=== PATIENT | male | born 1950 | race Caucasian/White ===

== ENCOUNTER 2019-08-12 05:05 | Day surgery (SDC) | payer MEDICARE, MEDICAID ==
[2019-08-10 10:00] LABS: BASOPHILS # (AUTO) 0.1 X10'3 (0-0.2); BASOPHILS % (AUTO) 0.9 % (0-1); EOSINOPHILS # (AUTO) 0.5 X10'3 (0-0.9); HEMATOCRIT 42.9 % (42.0-52.0); HEMOGLOBIN 14.7 g/dl (14.0-17.9); LYMPHOCYTES # (AUTO) 3.2 X10'3 (1.1-4.8); LYMPHOCYTES % (AUTO) 35.8 % (21-51); MEAN CORPUSCULAR HEMOGLOBIN 31.5 PG (27.0-31.0); MEAN CORPUSCULAR HGB CONC 34.3 g/dL (33.0-36.5); MEAN CORPUSCULAR VOLUME 91.7 FL (78-98); MEAN PLATELET VOLUME 8.2 FL (7.4-10.4); MONOCYTES # (AUTO) 0.8 X10'3 (0-0.9); MONOCYTES % (AUTO) 8.7 % (2-12); NEUTROPHILS # (AUTO) 4.3 X10'3 (1.8-7.7); NEUTROPHILS % (AUTO) 48.6 % (42-75); PLATELET COUNT 289 X10'3 (140-440); RED BLOOD COUNT 4.67 X10'6 (4.70-6.10); RED CELL DISTRIBUTION WIDTH 13.9 % (11.5-14.5); WHITE BLOOD COUNT 8.9 X10'3 (4.5-11.0)
[2019-08-10 10:06] LABS: ALBUMIN 3.6 G/DL (3.4-5.0); ANION GAP 8 (8-16); BLOOD UREA NITROGEN 11 MG/DL (7-18); BUN/CREATININE RATIO 10.9 (5.4-32.0); CALCIUM 8.8 MG/DL (8.5-10.1); CHLORIDE 100 MMOL/L (99-107); CREATININE 1.01 MG/DL (0.60-1.10); GLUCOSE 102 MG/DL (70-104); POTASSIUM 4.7 MMOL/L (3.5-5.1); SODIUM 132 MMOL/L (135-145); eGFR 74 ML/MIN
[2019-08-10 11:24] LABS: PARTIAL THROMBOPLASTIN TIME 27 SECONDS (22-32)
[~2019-08-12] VITALS: Ht 172.7 cm; Wt 88.8 kg
[2019-08-12] VITALS (9 sets, daily range): BP systolic 117–136; BP diastolic 64–87
[~2019-08-12 05:05] MED LIST: ASPI-1264 PO; ATOR20TA66 PO; CLOP75TA35 PO; LISI-600 PO; LOP25T PO; TRAM50TA2 PO
[2019-08-12] MEDS ORDERED: diphenhydrAMINE 25mg capsule PO PRN (05:35)
[2019-08-12] MEDS ORDERED: LORazepam 0.5 MG tablet PO PRN (05:35)
[2019-08-12] MEDS ORDERED: normal saline 1,000 ML IV SCH (05:35)
[2019-08-12] MEDS ORDERED: midazolam 2 mg/2 ml injection ONE ×2 (06:01→06:51)
[2019-08-12] MEDS ORDERED: fentaNYL/PF 50MCG/1 ML 2ML syringe ONE (06:01)
[2019-08-12] MEDS ORDERED: iohexol 350MG/ML 100ml bottle IV ONE ×2 (06:02→06:50)
[2019-08-12] MEDS ORDERED: LIDOcaine 1% (10mg/ml)w/preservative injection 20ml MDV ONE (06:02)
[2019-08-12] MEDS ORDERED: LOSA100T57 PO (06:33)
[2019-08-12] MEDS ORDERED: METO50TA17 PO (06:33)
[2019-08-12] MEDS ORDERED: AMLO10TA PO (06:33)
[2019-08-12] MEDS ORDERED: IBUP-1984 PO (06:33)
[2019-08-12] MEDS ORDERED: ASPI-1265 PO (06:33)
[2019-08-12] MEDS ORDERED: ATOR20TA66 PO (06:33)
[2019-08-12] MEDS ORDERED: heparin 1,000unit/ml 10ml vial 10 ML ONE (06:50)
[2019-08-12] MEDS ORDERED: clopidogrel 300mg tablet ONE (07:07)
[2019-08-12] MEDS ORDERED: ondansetron/PF 4mg/2ml inj IV PRN (07:45)
[2019-08-12] MEDS ORDERED: proCHLORperazine 10 MG/2 ml inj IV PRN (07:45)
[2019-08-12] MEDS ORDERED: HYDROcodone/acetaminophen 10/325mg tab PO PRN (07:45)
[2019-08-12] MEDS ORDERED: OXAZEpam 15mg capsule PO PRN (07:45)
[2019-08-12] MEDS ORDERED: HYDROcodone/acetaminophen 5mg/325mg tablet PO PRN (07:45)
[2019-08-12] MEDS ORDERED: acetaminophen 325mg tablet PO PRN (07:45)
[2019-08-13] MEDS ORDERED: clopidogrel 75mg tablet PO SCH (08:00)
== END 2019-08-12 10:50 | disposition home or self-care (01) ==
LOC: SSTAY O 05:05
PROVIDERS: ATTEND Internal Medicine Interventional Cardiology
DX: I25.10 Atherosclerotic heart disease of native coronary artery without angina pectoris (principal); I25.2 Old myocardial infarction; I10 Essential (primary) hypertension; Z86.73 Personal history of transient ischemic attack (TIA), and cerebral infarction without residual deficits; Z88.5 Allergy status to narcotic agent; Z88.8 Allergy status to other drugs, medicaments and biological substances; Z79.899 Other long term (current) drug therapy; Z79.82 Long term (current) use of aspirin; Z87.891 Personal history of nicotine dependence; Z79.01 Long term (current) use of anticoagulants
CPT/HCPCS: 36415; 80048; 85025; 85610; 85730; 92920; 93459; 99152; 99153; C1725; C1769; C1874; J1644; J2001; J2250; J3010; J7030; Q0163; Q9967; A4620; A6258; C1760

== ENCOUNTER 2021-03-26 16:02 | Inpatient (IN) | payer MEDICARE, MEDICAID ==
[~2021-03-26] VITALS: Ht 172.7 cm; Wt 93.0 kg
[~2021-03-26 16:02] MED LIST changes: -ASPI-1264 PO; +ASPI-1265 PO; +CLOP75TA34 PO; -CLOP75TA35 PO; +ENOX40DI11 SQ; +HYDR-3965 PO; -LISI-600 PO; -LOP25T PO; +LOSA100T57 PO; +METO50TA16 PO
[2021-03-26] MEDS ORDERED: normal saline 1000ML IV soln IVB ONE ×2 (16:25→17:15)
[2021-03-26] MEDS ORDERED: proCHLORperazine 10 MG/2 ml inj IV ONE (16:25)
--- NOTE | 2021-03-26 16:31 | NUR ---
RELIEVING RN FOR BREAK, PT IS HAVING HICCUPS, DIFFICULTY GETTING EKG, LABS WERE DRAWN WITH IV START
--- NOTE | 2021-03-26 16:40 | NUR ---
PT IS RECEIVING 1ST LITER NS W/O
[2021-03-26 16:44] LABS: BASOPHILS # (AUTO) 0.1 X10'3 (0-0.2); BASOPHILS % (AUTO) 0.4 % (0-1); EOSINOPHILS # (AUTO) 0.1 X10'3 (0-0.9); EOSINOPHILS % (AUTO) 1.2 % (0-6); HEMATOCRIT 31.8 % (42.0-52.0); HEMOGLOBIN 11.3 g/dl (14.0-17.9); LYMPHOCYTES # (AUTO) 1.2 X10'3 (1.1-4.8); MEAN CORPUSCULAR HEMOGLOBIN 30.4 PG (27.0-31.0); MEAN CORPUSCULAR HGB CONC 35.4 g/dL (33.0-36.5); MEAN PLATELET VOLUME 7.1 FL (7.4-10.4); MONOCYTES # (AUTO) 0.7 X10'3 (0-0.9); MONOCYTES % (AUTO) 6.3 % (2-12); NEUTROPHILS # (AUTO) 9.6 X10'3 (1.8-7.7); NEUTROPHILS % (AUTO) 82.1 % (42-75); PLATELET COUNT 597 X10'3 (140-440); RED CELL DISTRIBUTION WIDTH 13.2 % (11.5-14.5); WHITE BLOOD COUNT 11.8 X10'3 (4.5-11.0)
[2021-03-26 16:57] LABS: ALANINE AMINOTRANSFERASE 48 U/L (12-78); ALBUMIN 3.1 G/DL (3.4-5.0); ALBUMIN/GLOBULIN RATIO 0.8 (1.1-1.5); ALKALINE PHOSPHATASE 209 IU/L (46-116); ANION GAP 8 (8-16); ASPARTATE AMINO TRANSFERASE 34 U/L (10-37); BILIRUBIN,TOTAL 1.9 MG/DL (0.1-1.0); BLOOD UREA NITROGEN 8 MG/DL (7-18); BUN/CREATININE RATIO 12.9 (5.4-32.0); CALCIUM 8.5 MG/DL (8.5-10.1); CREATININE 0.62 MG/DL (0.60-1.10); ETHANOL < 0.010 GM/DL (0.0-0.010); GLUCOSE 114 MG/DL (70-104); LIPASE 133 U/L (73-393); TOTAL CARBON DIOXIDE 25.3 MMOL/L (24-32); TOTAL PROTEIN 7.2 G/DL (6.4-8.2); TROPONIN I < 0.04 NG/ML (0.0-0.05); eGFR > 90 ML/MIN
[2021-03-26 17:01] LABS: POTASSIUM 2.7 MMOL/L (3.5-5.1); SODIUM 103 MMOL/L (135-145)
[2021-03-26 17:02] LABS: CHLORIDE 70 MMOL/L (99-107)
[2021-03-26] MEDS ORDERED: morphine 4 MG/ML inj SYRINge IV PRN (17:15)
[2021-03-26] MEDS ORDERED: potassium Cl 10 mEq/100mL bag IV ONE (17:15)
[2021-03-26] MEDS ORDERED: ondansetron/PF 4mg/2ml inj IV ONE (17:15)
[2021-03-26 17:51] LABS: ANION GAP 11 (8-16); CHLORIDE 69 MMOL/L (99-107); MAGNESIUM 1.7 MG/DL (1.5-2.4); TOTAL CARBON DIOXIDE 24.9 MMOL/L (24-32)
[2021-03-26 17:54] LABS: SODIUM 105 MMOL/L (135-145)
[2021-03-26 17:55] LABS: POTASSIUM 2.8 MMOL/L (3.5-5.1)
[2021-03-26 18:00] VITALS: BP 139/75
[2021-03-26] MEDS ORDERED: sodium chloride 3% IV.soln 100 ML IV ONE (18:20)
[2021-03-26] MEDS ORDERED: magnesium 2GM in 50ml NS 50 ML IV ONE (18:20)
[2021-03-26] MEDS ORDERED: sodium chloride 3% IV.soln 500 ML IV SCH (18:20)
[2021-03-26 18:56] LABS: PARTIAL THROMBOPLASTIN TIME 35 SECONDS (22-32)
[2021-03-26] MEDS: potassium Cl 10 mEq/100mL bag IV SCH ×5 (19:20→22:58)
[2021-03-26 20:00] VITALS: BP 123/73
[2021-03-26] MEDS ORDERED: magnesium Cl slow-release 64mg tablet PO PRN (20:25)
[2021-03-26] MEDS ORDERED: Neutra Phos packet PO PRN (20:25)
[2021-03-26] MEDS ORDERED: magnesium 2GM in 50ml NS 50 ML IV PRN (20:25)
[2021-03-26] MEDS ORDERED: magnesium 4gm in 100ml NS 100 ML IV PRN (20:25)
[2021-03-26] MEDS ORDERED: potassium Cl 20 mEq SR tablet PO PRN (20:25)
[2021-03-26] MEDS ORDERED: sodium phosphate inj. 30 MMOL in dextrose 5%-water 250 ML IV PRN (20:25)
[2021-03-26 21:00] VITALS: BP 128/79
--- NOTE | 2021-03-26 21:37 | NUR ---
Patient in room ED 16. I have received report from STEPHEN George and had the opportunity to ask questions. Patient to be brought up to the unit shortly.
--- NOTE | 2021-03-26 21:45 | NUR ---
Patient in room 2011 B, in no apparent distress. MRSA swab obtained, darted, fluids running per md order, patient A/O but sleepy.
[2021-03-26 22:00] VITALS: BP 120/72
[2021-03-26 22:39] LABS: ANION GAP 10 (8-16); BLOOD UREA NITROGEN 7 MG/DL (7-18); BUN/CREATININE RATIO 10.8 (5.4-32.0); CALCIUM 8.1 MG/DL (8.5-10.1); CHLORIDE 75 MMOL/L (99-107); CREATININE 0.65 MG/DL (0.60-1.10); GLUCOSE 112 MG/DL (70-104); TOTAL CARBON DIOXIDE 24.4 MMOL/L (24-32); eGFR > 90 ML/MIN
[2021-03-26 22:41] LABS: SODIUM 109 MMOL/L (135-145)
[2021-03-26 22:42] LABS: POTASSIUM 2.9 MMOL/L (3.5-5.1)
[2021-03-26 23:00] VITALS: BP 114/56
[2021-03-27] VITALS (23 sets, daily range): BP systolic 107–159; BP diastolic 47–87
[2021-03-27] MEDS ORDERED: magnesium 2GM in 50ml NS 50 ML IV ONE (01:10)
[2021-03-27] MEDS: normal saline 1000ml 1,000 ML IV SCH ×2 (01:29→18:53)
[2021-03-27] MEDS: ketorolac trometh. 30mg/ml inj. IV SCH ×4 (01:31→19:26)
[2021-03-27] MEDS ORDERED: HYDR-3964 PO (01:57)
[2021-03-27 02:59] LABS: BASOPHILS # (AUTO) 0.1 X10'3 (0-0.2); BASOPHILS % (AUTO) 0.5 % (0-1); EOSINOPHILS # (AUTO) 0.3 X10'3 (0-0.9); EOSINOPHILS % (AUTO) 2.3 % (0-6); HEMATOCRIT 30.3 % (42.0-52.0); HEMOGLOBIN 10.8 g/dl (14.0-17.9); LYMPHOCYTES # (AUTO) 1.3 X10'3 (1.1-4.8); LYMPHOCYTES % (AUTO) 11.4 % (21-51); MEAN CORPUSCULAR HEMOGLOBIN 30.5 PG (27.0-31.0); MEAN CORPUSCULAR HGB CONC 35.6 g/dL (33.0-36.5); MEAN CORPUSCULAR VOLUME 85.8 FL (78-98); MEAN PLATELET VOLUME 7.3 FL (7.4-10.4); MONOCYTES # (AUTO) 0.9 X10'3 (0-0.9); MONOCYTES % (AUTO) 7.7 % (2-12); NEUTROPHILS # (AUTO) 8.7 X10'3 (1.8-7.7); NEUTROPHILS % (AUTO) 78.1 % (42-75); PLATELET COUNT 545 X10'3 (140-440); RED BLOOD COUNT 3.53 X10'6 (4.70-6.10); RED CELL DISTRIBUTION WIDTH 13.3 % (11.5-14.5); WHITE BLOOD COUNT 11.2 X10'3 (4.5-11.0)
--- NOTE | 2021-03-27 03:00 | NUR ---
Currently replacing electrolytes per protocol.
[2021-03-27 03:08] LABS: ALANINE AMINOTRANSFERASE 42 U/L (12-78); ALBUMIN 2.9 G/DL (3.4-5.0); ALBUMIN/GLOBULIN RATIO 0.8 (1.1-1.5); ALKALINE PHOSPHATASE 198 IU/L (46-116); ANION GAP 9 (8-16); ASPARTATE AMINO TRANSFERASE 32 U/L (10-37); BILIRUBIN,TOTAL 1.6 MG/DL (0.1-1.0); BLOOD UREA NITROGEN 6 MG/DL (7-18); BUN/CREATININE RATIO 9.4 (5.4-32.0); CALCIUM 8.1 MG/DL (8.5-10.1); CHLORIDE 79 MMOL/L (99-107); CREATININE 0.64 MG/DL (0.60-1.10); GLUCOSE 111 MG/DL (70-104); MAGNESIUM 2.2 MG/DL (1.5-2.4); PHOSPHORUS 2.2 MG/DL (2.3-4.5); TOTAL CARBON DIOXIDE 24.5 MMOL/L (24-32); TOTAL PROTEIN 6.7 G/DL (6.4-8.2); eGFR > 90 ML/MIN
[2021-03-27 03:14] LABS: SODIUM 112 MMOL/L (135-145)
[2021-03-27 03:15] LABS: POTASSIUM 2.7 MMOL/L (3.5-5.1)
[2021-03-27] MEDS: potassium Cl 40MEQ/250ML bag 270 ML IV PRN ×3 (03:18→12:48)
[2021-03-27] MEDS: sodium phosphate inj. 15 MMOL in dextrose 5%-water 250 ML IV PRN ×2 (03:48→23:43)
--- NOTE | 2021-03-27 06:18 | NUR ---
Problems reprioritized. Patient report given, questions answered & plan of care reviewed with Day shift RN.
[2021-03-27] MEDS: K and/or MAG REPLACEMENT MC SCH (08:00)
[2021-03-27 11:10] LABS: ANION GAP 9 (8-16); CHLORIDE 83 MMOL/L (99-107); MAGNESIUM 2.4 MG/DL (1.5-2.4); PHOSPHORUS 2.2 MG/DL (2.3-4.5); POTASSIUM 3.4 MMOL/L (3.5-5.1); TOTAL CARBON DIOXIDE 22.6 MMOL/L (24-32)
[2021-03-27 11:16] LABS: SODIUM 115 MMOL/L (135-145)
--- NOTE | 2021-03-27 14:56 | NUR ---
Malnutrition Consult: Pt admitted for N/V x2 days with low potassium and low sodium; pt was seen in the ER on 03/06 for N/V. Pt reports losing wt in the last 3 months without trying and having a decreased appetite for over 1 week, per Malnutrition Risk Screening for Nursing. Scaled wt hx shows 88 kg at previous visit 11/18 and current scaled wt is 93 kg. Dexter 16, with 2+ bilat ankle, 3+ left foot, 1+ right foot edema. Skin intact. Pt PO at first meal avg 50% at meals on a regular diet.Pt does not meet minimum 2 criteria at this time for malnutrition. Will continue to follow. Addendum: 03/27/21 at 1457 by Yajaira REYNA [employer] TALEO MANAGER RD Amended: Links added. Addendum: 03/27/21 at [address] GISSELL lucas w/ [employer] media planner note.
[2021-03-27] MEDS: ondansetron/PF 4mg/2ml inj IV PRN (15:07)
[2021-03-27 16:51] LABS: ALBUMIN 2.8 G/DL (3.4-5.0); ANION GAP 8 (8-16); BLOOD UREA NITROGEN 8 MG/DL (7-18); BUN/CREATININE RATIO 11.9 (5.4-32.0); CALCIUM 7.8 MG/DL (8.5-10.1); CHLORIDE 84 MMOL/L (99-107); CREATININE 0.67 MG/DL (0.60-1.10); GLUCOSE 110 MG/DL (70-104); TOTAL CARBON DIOXIDE 22.1 MMOL/L (24-32); eGFR > 90 ML/MIN
[2021-03-27 16:56] LABS: SODIUM 114 MMOL/L (135-145)
[2021-03-27 18:04] LABS: COLOR,URINE YELLOW (Yellow); GLUCOSE, URINE NEGATIVE (Neg); KETONES,URINE NEGATIVE (Neg); LEUKOCYTE ESTERASE ,URINE NEGATIVE (Neg); NITRITES, URINE NEGATIVE (Neg); OCCULT BLOOD,URINE NEGATIVE (Neg); PH,URINE 6.5 (4.8-8.0); PROTEIN,URINE NEGATIVE (Neg); UROBILINOGEN,URINE 0.2 E.U/dL (0.2-1.0)
[2021-03-27 18:22] LABS: UA COLLECTION TYPE CLN CATCH MIDSTREAM
[2021-03-27 18:23] LABS: CLARITY,URINE CLEAR (Clear)
--- NOTE | 2021-03-27 18:30 | NUR ---
Patient in room CICU 2010. I have received report from Laila MITCHELL and had the opportunity to ask questions and assume patient care.
[2021-03-27] MEDS: metoprolol tartrate 25mg tablet PO SCH (19:26)
[2021-03-27] MEDS: enoxaparin 40mg/0.4ml syringe SQ SCH (19:26)
[2021-03-27 22:39] LABS: ALBUMIN 2.7 G/DL (3.4-5.0); ANION GAP 7 (8-16); BLOOD UREA NITROGEN 7 MG/DL (7-18); BUN/CREATININE RATIO 10.6 (5.4-32.0); CALCIUM 8.1 MG/DL (8.5-10.1); CHLORIDE 84 MMOL/L (99-107); CREATININE 0.66 MG/DL (0.60-1.10); GLUCOSE 106 MG/DL (70-104); MAGNESIUM 2.1 MG/DL (1.5-2.4); PHOSPHORUS 1.7 MG/DL (2.3-4.5); POTASSIUM 3.9 MMOL/L (3.5-5.1); TOTAL CARBON DIOXIDE 22.8 MMOL/L (24-32); eGFR > 90 ML/MIN
[2021-03-27 22:41] LABS: SODIUM 114 MMOL/L (135-145)
[2021-03-27 22:59] LABS: OSMOLALITY 241 MOSM/K (280-300)
[2021-03-28] VITALS (20 sets, daily range): BP systolic 108–158; BP diastolic 46–86
[2021-03-28] MEDS: ketorolac trometh. 30mg/ml inj. IV SCH (02:04)
[2021-03-28 03:22] LABS: BASOPHILS # (AUTO) 0.1 X10'3 (0-0.2); EOSINOPHILS # (AUTO) 0.2 X10'3 (0-0.9); HEMOGLOBIN 10.4 g/dl (14.0-17.9); RED CELL DISTRIBUTION WIDTH 13.8 % (11.5-14.5); WHITE BLOOD COUNT 15.6 X10'3 (4.5-11.0)
[2021-03-28 03:24] LABS: BASOPHILS % (AUTO) 0.4 % (0-1); EOSINOPHILS % (AUTO) 1.1 % (0-6); HEMATOCRIT 29.5 % (42.0-52.0); LYMPHOCYTES # (AUTO) 0.7 X10'3 (1.1-4.8); LYMPHOCYTES % (AUTO) 4.3 % (21-51); MEAN CORPUSCULAR HGB CONC 35.3 g/dL (33.0-36.5); MEAN CORPUSCULAR VOLUME 87.9 FL (78-98); MEAN PLATELET VOLUME 7.3 FL (7.4-10.4); MONOCYTES # (AUTO) 0.4 X10'3 (0-0.9); MONOCYTES % (AUTO) 2.6 % (2-12); NEUTROPHILS # (AUTO) 14.3 X10'3 (1.8-7.7); NEUTROPHILS % (AUTO) 91.6 % (42-75); PLATELET COUNT 519 X10'3 (140-440); RED BLOOD COUNT 3.35 X10'6 (4.70-6.10)
[2021-03-28 03:36] LABS: ALANINE AMINOTRANSFERASE 37 U/L (12-78); ALBUMIN 2.5 G/DL (3.4-5.0); ALBUMIN/GLOBULIN RATIO 0.7 (1.1-1.5); ALKALINE PHOSPHATASE 179 IU/L (46-116); ANION GAP 9 (8-16); ASPARTATE AMINO TRANSFERASE 30 U/L (10-37); BILIRUBIN,TOTAL 1.3 MG/DL (0.1-1.0); BLOOD UREA NITROGEN 7 MG/DL (7-18); BUN/CREATININE RATIO 10.1 (5.4-32.0); CALCIUM 7.5 MG/DL (8.5-10.1); CHLORIDE 85 MMOL/L (99-107); CREATININE 0.69 MG/DL (0.60-1.10); GLUCOSE 106 MG/DL (70-104); MAGNESIUM 1.8 MG/DL (1.5-2.4); PHOSPHORUS 2.3 MG/DL (2.3-4.5); POTASSIUM 3.7 MMOL/L (3.5-5.1); TOTAL CARBON DIOXIDE 20.9 MMOL/L (24-32); TOTAL PROTEIN 6.1 G/DL (6.4-8.2); eGFR > 90 ML/MIN
[2021-03-28 03:39] LABS: SODIUM 115 MMOL/L (135-145)
--- NOTE | 2021-03-28 06:13 | NUR ---
Problems reprioritized. Patient report given, questions answered & plan of care reviewed with Sunny MITCHELL.
--- NOTE | 2021-03-28 06:30 | NUR ---
Patient in room CICU 2010. I have received report from Karyna MITCHELL and had the opportunity to ask questions and assume patient care.
[2021-03-28] MEDS: atorvastatin 20mg tablet PO SCH (07:35)
[2021-03-28] MEDS: aspirin 81mg tab.chew PO SCH (07:35)
[2021-03-28] MEDS: clopidogrel 75mg tablet PO SCH (07:35)
[2021-03-28] MEDS: metoprolol tartrate 25mg tablet PO SCH ×2 (07:35→20:04)
[2021-03-28] MEDS: K and/or MAG REPLACEMENT MC SCH (08:00)
[2021-03-28] MEDS ORDERED: losartan 50mg tablet PO SCH (08:00)
[2021-03-28] MEDS ORDERED: furosemide 40mg/4ml inj IV ONE (08:20)
[2021-03-28] MEDS: normal saline 1000ml 1,000 ML IV SCH ×3 (08:39→21:35)
[2021-03-28 08:55] LABS: ALBUMIN 2.7 G/DL (3.4-5.0); ANION GAP 8 (8-16); BLOOD UREA NITROGEN 6 MG/DL (7-18); BUN/CREATININE RATIO 8.5 (5.4-32.0); CALCIUM 7.8 MG/DL (8.5-10.1); CHLORIDE 86 MMOL/L (99-107); CREATININE 0.71 MG/DL (0.60-1.10); GLUCOSE 99 MG/DL (70-104); POTASSIUM 3.6 MMOL/L (3.5-5.1); TOTAL CARBON DIOXIDE 22.9 MMOL/L (24-32); eGFR > 90 ML/MIN
[2021-03-28 08:56] LABS: SODIUM 117 MMOL/L (135-145)
[2021-03-28 09:39] LABS: MAGNESIUM 1.8 MG/DL (1.5-2.4); PHOSPHORUS 2.3 MG/DL (2.3-4.5)
--- NOTE | 2021-03-28 10:19 | NUR ---
updated on all abnormal lab values and new issues. New orders received.
[2021-03-28] MEDS: pantoprazole 40 MG vial IV SCH (11:02)
[2021-03-28 11:35] LABS: CLARITY,URINE CLEAR (Clear); COLOR,URINE YELLOW (Yellow); GLUCOSE, URINE NEGATIVE (Neg); KETONES,URINE NEGATIVE (Neg); LEUKOCYTE ESTERASE ,URINE NEGATIVE (Neg); NITRITES, URINE NEGATIVE (Neg); OCCULT BLOOD,URINE NEGATIVE (Neg); PROTEIN,URINE NEGATIVE (Neg)
[2021-03-28 11:38] LABS: UA COLLECTION TYPE NON-SPECIFIED
[2021-03-28] MEDS ORDERED: dextrose ORAL solution 15 GM/59 ML bottle PO PRN ×2 (13:45)
[2021-03-28] MEDS ORDERED: dextrose 50%-water 50ml dispensing syringe IV PRN ×2 (13:45)
--- NOTE | 2021-03-28 13:55 | NUR ---
MD aware patient's Blood Glucose was 62, orders received for D50. 1/2 an amp given BG rechecked 162.
[2021-03-28 14:42] LABS: ALBUMIN 2.5 G/DL (3.4-5.0); ANION GAP 7 (8-16); BLOOD UREA NITROGEN 7 MG/DL (7-18); CALCIUM 7.7 MG/DL (8.5-10.1); CHLORIDE 85 MMOL/L (99-107); CREATININE 0.78 MG/DL (0.60-1.10); GLUCOSE 114 MG/DL (70-104); POTASSIUM 3.6 MMOL/L (3.5-5.1); TOTAL CARBON DIOXIDE 24.4 MMOL/L (24-32); eGFR > 90 ML/MIN
[2021-03-28 14:44] LABS: SODIUM 116 MMOL/L (135-145)
[2021-03-28] MEDS: ketorolac trometh. 30mg/ml inj. IV PRN ×2 (15:08→21:34)
[2021-03-28 15:19] LABS: MAGNESIUM 1.8 MG/DL (1.5-2.4); PHOSPHORUS 2.2 MG/DL (2.3-4.5)
--- NOTE | 2021-03-28 15:36 | NUR ---
Worked with patient and PT aide at bedside for exercises appropriate for s/p left sanchez arthroplasty. Will encourage patient to perform exercises every hour while awake.
--- NOTE | 2021-03-28 15:42 | NUR ---
patient report called to Halle MITCHELL. All questions answered.
--- NOTE | 2021-03-28 15:47 | NUR ---
Patient in room CICU 2010. I have received report from STEPHEN Cornell. Awaiting patient arrival from CICU to assume care.
[2021-03-28] MEDS: sodium phosphate inj. 15 MMOL in dextrose 5%-water 250 ML IV PRN (16:10)
--- NOTE | 2021-03-28 16:51 | NUR ---
Report called to receiving nurse. Transferred via bed with all belongings: shirt, sweats, cell phone and glasses. Special Issues communicated to receiving nurse.
--- NOTE | 2021-03-28 17:02 | NUR ---
Patient received from CICU. Settled into new bed, hip precautions maintained. Will monitor per protocol.
[2021-03-28 17:12] LABS: TOTAL VOLUME 24HRS,URINE 1775 ML
[2021-03-28] MEDS ORDERED: TOLVAPTAN 30 MG TABLET PO ONE (17:20)
--- NOTE | 2021-03-28 17:50 | NUR ---
Right groin central line DC'd with cath tip intact. pressure held for 5 minutes then pressure dressing applied.
--- NOTE | 2021-03-28 18:10 | NUR ---
Problems reprioritized. Patient report given, questions answered & plan of care reviewed with Rito MITCHELL.
--- NOTE | 2021-03-28 18:30 | NUR ---
Problems reprioritized. Patient report given, questions answered & plan of care reviewed with STEPHEN Veras.
[2021-03-28] MEDS ORDERED: enoxaparin 40mg/0.4ml syringe SUBCUT SCH (20:00)
[2021-03-28] MEDS: enoxaparin 40mg/0.4ml syringe SQ SCH (20:04)
[2021-03-28] MEDS: acetaminophen 325mg tablet PO PRN (20:14)
[2021-03-28 20:46] LABS: ALBUMIN 2.4 G/DL (3.4-5.0); ANION GAP 9 (8-16); BLOOD UREA NITROGEN 7 MG/DL (7-18); BUN/CREATININE RATIO 8.4 (5.4-32.0); CALCIUM 7.9 MG/DL (8.5-10.1); CHLORIDE 84 MMOL/L (99-107); CREATININE 0.83 MG/DL (0.60-1.10); GLUCOSE 124 MG/DL (70-104); POTASSIUM 3.2 MMOL/L (3.5-5.1); TOTAL CARBON DIOXIDE 21.1 MMOL/L (24-32); eGFR > 90 ML/MIN
[2021-03-28 20:49] LABS: SODIUM 114 MMOL/L (135-145)
[2021-03-28 20:51] LABS: MAGNESIUM 1.7 MG/DL (1.5-2.4); PHOSPHORUS 2.4 MG/DL (2.3-4.5)
[2021-03-28] MEDS: ondansetron/PF 4mg/2ml inj IV PRN (21:34)
[2021-03-28 23:20] LABS: SODIUM,URINE RANDOM 76 MEQ/L
--- NOTE | 2021-03-28 23:58 | NUR ---
Student documentation: I have reviewed all interventions, assessments performed and documented by Tierney Roberts. Student Medication Administration: For this medication-pass time frame, all medication were reviewed, dispensed, administered and documented per hospital policy by Tierney Roberts.
[2021-03-29] VITALS (10 sets, daily range): BP systolic 116–145; BP diastolic 58–88
[2021-03-29 04:02] LABS: BASOPHILS # (AUTO) 0.1 X10'3 (0-0.2); BASOPHILS % (AUTO) 0.6 % (0-1); EOSINOPHILS # (AUTO) 0.4 X10'3 (0-0.9); EOSINOPHILS % (AUTO) 3.5 % (0-6); HEMATOCRIT 30.4 % (42.0-52.0); HEMOGLOBIN 10.7 g/dl (14.0-17.9); LYMPHOCYTES # (AUTO) 1.3 X10'3 (1.1-4.8); LYMPHOCYTES % (AUTO) 12.3 % (21-51); MEAN CORPUSCULAR HGB CONC 35.1 g/dL (33.0-36.5); MEAN CORPUSCULAR VOLUME 88.2 FL (78-98); MEAN PLATELET VOLUME 7.3 FL (7.4-10.4); MONOCYTES # (AUTO) 0.5 X10'3 (0-0.9); MONOCYTES % (AUTO) 4.9 % (2-12); NEUTROPHILS % (AUTO) 78.7 % (42-75); PLATELET COUNT 297 X10'3 (140-440); RED BLOOD COUNT 3.44 X10'6 (4.70-6.10); RED CELL DISTRIBUTION WIDTH 13.7 % (11.5-14.5); WHITE BLOOD COUNT 10.2 X10'3 (4.5-11.0)
--- NOTE | 2021-03-29 04:53 | NUR ---
MULTIPLE NURSES ATTEMPTED TO DRAW PT LABS, PT REQUESTED TO NOT BE STUCK ANYMORE WITH NEEDLE, PHLEBOTOMY CALLED AT THIS TIME TO COME DRAW PT BMP.
--- NOTE | 2021-03-29 06:18 | NUR ---
Patient in room PCU 3028. I have received report from STEPHEN Veras and had the opportunity to ask questions and assume patient care.
[2021-03-29] MEDS: K and/or MAG REPLACEMENT MC SCH (08:00)
[2021-03-29 08:07] LABS: ALANINE AMINOTRANSFERASE 41 U/L (12-78); ALBUMIN 2.5 G/DL (3.4-5.0); ALBUMIN/GLOBULIN RATIO 0.7 (1.1-1.5); ALKALINE PHOSPHATASE 178 IU/L (46-116); ANION GAP 9 (8-16); ASPARTATE AMINO TRANSFERASE 37 U/L (10-37); BILIRUBIN,TOTAL 1.3 MG/DL (0.1-1.0); BLOOD UREA NITROGEN 5 MG/DL (7-18); BUN/CREATININE RATIO 6.9 (5.4-32.0); CALCIUM 8.3 MG/DL (8.5-10.1); CHLORIDE 92 MMOL/L (99-107); CREATININE 0.72 MG/DL (0.60-1.10); GLUCOSE 107 MG/DL (70-104); MAGNESIUM 1.9 MG/DL (1.5-2.4); PHOSPHORUS 2.4 MG/DL (2.3-4.5); POTASSIUM 3.3 MMOL/L (3.5-5.1); SODIUM 124 MMOL/L (135-145); TOTAL CARBON DIOXIDE 23.5 MMOL/L (24-32); TOTAL PROTEIN 6.2 G/DL (6.4-8.2); eGFR > 90 ML/MIN
[2021-03-29] MEDS: pantoprazole 40 MG vial IV SCH (08:21)
[2021-03-29] MEDS: aspirin 81mg tab.chew PO SCH (08:22)
[2021-03-29] MEDS: atorvastatin 20mg tablet PO SCH (08:22)
[2021-03-29] MEDS: metoprolol tartrate 25mg tablet PO SCH ×2 (08:22→20:00)
[2021-03-29] MEDS: clopidogrel 75mg tablet PO SCH (08:22)
[2021-03-29] MEDS ORDERED: TOLVAPTAN 30 MG TABLET PO ONE (08:30)
[2021-03-29] MEDS: potassium Cl 20 mEq SR tablet PO PRN ×3 (09:49→22:01)
[2021-03-29] MEDS: normal saline 1000ml 1,000 ML IV SCH ×2 (09:50→17:22)
[2021-03-29] MEDS: ketorolac tromethamine 15mg/ml inj. IV PRN (14:53)
[2021-03-29 15:16] LABS: ALBUMIN 2.6 G/DL (3.4-5.0); ANION GAP 7 (8-16); BLOOD UREA NITROGEN 4 MG/DL (7-18); BUN/CREATININE RATIO 5.2 (5.4-32.0); CALCIUM 8.1 MG/DL (8.5-10.1); CHLORIDE 92 MMOL/L (99-107); CREATININE 0.77 MG/DL (0.60-1.10); GLUCOSE 122 MG/DL (70-104); MAGNESIUM 1.8 MG/DL (1.5-2.4); PHOSPHORUS 2.3 MG/DL (2.3-4.5); POTASSIUM 3.8 MMOL/L (3.5-5.1); SODIUM 124 MMOL/L (135-145); TOTAL CARBON DIOXIDE 24.6 MMOL/L (24-32); eGFR > 90 ML/MIN
[2021-03-29] MEDS ORDERED: fentaNYL/PF 50MCG/1 ML 2ML syringe ONE (16:13)
[2021-03-29] MEDS ORDERED: LIDOcaine Viscous 15ml cup ONE (16:14)
[2021-03-29] MEDS ORDERED: MIDAZolam 1 MG/ML 5ML VIAL ONE (16:14)
--- NOTE | 2021-03-29 18:31 | NUR ---
Problems reprioritized. Patient report given, questions answered & plan of care reviewed with STEPHEN Alan.
[2021-03-29 20:38] LABS: ALBUMIN 2.6 G/DL (3.4-5.0); ANION GAP 11 (8-16); BLOOD UREA NITROGEN 4 MG/DL (7-18); BUN/CREATININE RATIO 4.9 (5.4-32.0); CALCIUM 8.2 MG/DL (8.5-10.1); CHLORIDE 93 MMOL/L (99-107); CREATININE 0.82 MG/DL (0.60-1.10); GLUCOSE 149 MG/DL (70-104); MAGNESIUM 1.9 MG/DL (1.5-2.4); PHOSPHORUS 2.6 MG/DL (2.3-4.5); POTASSIUM 3.5 MMOL/L (3.5-5.1); SODIUM 127 MMOL/L (135-145); TOTAL CARBON DIOXIDE 23.4 MMOL/L (24-32); eGFR > 90 ML/MIN
[2021-03-29] MEDS: enoxaparin 40mg/0.4ml syringe SQ SCH (22:03)
[2021-03-30] MEDS: normal saline 1000ml 1,000 ML IV SCH ×3 (01:42→23:00)
[2021-03-30 03:00] VITALS: BP 146/77
[2021-03-30] MEDS: ketorolac tromethamine 15mg/ml inj. IV PRN (04:26)
[2021-03-30 06:00] VITALS: BP 136/76
--- NOTE | 2021-03-30 06:17 | NUR ---
Patient in room PCU 3028. I have received report from STEPHEN Alan and had the opportunity to ask questions and assume patient care.
[2021-03-30 06:42] LABS: BASOPHILS # (AUTO) 0.1 X10'3 (0-0.2); BASOPHILS % (AUTO) 1.1 % (0-1); EOSINOPHILS # (AUTO) 0.3 X10'3 (0-0.9); EOSINOPHILS % (AUTO) 2.8 % (0-6); HEMATOCRIT 28.6 % (42.0-52.0); HEMOGLOBIN 10.2 g/dl (14.0-17.9); LYMPHOCYTES # (AUTO) 1.5 X10'3 (1.1-4.8); LYMPHOCYTES % (AUTO) 14.2 % (21-51); MEAN CORPUSCULAR HEMOGLOBIN 31.5 PG (27.0-31.0); MEAN CORPUSCULAR HGB CONC 35.8 g/dL (33.0-36.5); MEAN PLATELET VOLUME 7.3 FL (7.4-10.4); MONOCYTES # (AUTO) 0.8 X10'3 (0-0.9); MONOCYTES % (AUTO) 7.1 % (2-12); NEUTROPHILS # (AUTO) 7.9 X10'3 (1.8-7.7); NEUTROPHILS % (AUTO) 74.8 % (42-75); PLATELET COUNT 433 X10'3 (140-440); RED BLOOD COUNT 3.25 X10'6 (4.70-6.10); RED CELL DISTRIBUTION WIDTH 13.8 % (11.5-14.5); WHITE BLOOD COUNT 10.6 X10'3 (4.5-11.0)
[2021-03-30 06:54] LABS: ALANINE AMINOTRANSFERASE 50 U/L (12-78); ALBUMIN 2.6 G/DL (3.4-5.0); ALBUMIN/GLOBULIN RATIO 0.7 (1.1-1.5); ALKALINE PHOSPHATASE 195 IU/L (46-116); ANION GAP 10 (8-16); ASPARTATE AMINO TRANSFERASE 42 U/L (10-37); BILIRUBIN,TOTAL 1.1 MG/DL (0.1-1.0); BLOOD UREA NITROGEN 5 MG/DL (7-18); BUN/CREATININE RATIO 7.5 (5.4-32.0); CALCIUM 8.6 MG/DL (8.5-10.1); CHLORIDE 92 MMOL/L (99-107); CREATININE 0.67 MG/DL (0.60-1.10); GLUCOSE 102 MG/DL (70-104); MAGNESIUM 1.8 MG/DL (1.5-2.4); PHOSPHORUS 2.7 MG/DL (2.3-4.5); POTASSIUM 3.9 MMOL/L (3.5-5.1); SODIUM 124 MMOL/L (135-145); TOTAL CARBON DIOXIDE 22.4 MMOL/L (24-32); TOTAL PROTEIN 6.5 G/DL (6.4-8.2); eGFR > 90 ML/MIN
[2021-03-30] MEDS ORDERED: pantoprazole 40mg Tablet.DR PO SCH (07:30)
[2021-03-30] MEDS: aspirin 81mg tab.chew PO SCH (08:33)
[2021-03-30] MEDS: metoprolol tartrate 25mg tablet PO SCH ×2 (08:33→20:52)
[2021-03-30] MEDS: atorvastatin 20mg tablet PO SCH (08:33)
[2021-03-30] MEDS: clopidogrel 75mg tablet PO SCH (08:34)
[2021-03-30 11:00] VITALS: BP 138/67
[2021-03-30 14:33] LABS: ALBUMIN 2.7 G/DL (3.4-5.0); ANION GAP 10 (8-16); BLOOD UREA NITROGEN 7 MG/DL (7-18); BUN/CREATININE RATIO 8.2 (5.4-32.0); CALCIUM 8.5 MG/DL (8.5-10.1); CHLORIDE 91 MMOL/L (99-107); CREATININE 0.85 MG/DL (0.60-1.10); GLUCOSE 106 MG/DL (70-104); MAGNESIUM 1.9 MG/DL (1.5-2.4); PHOSPHORUS 2.6 MG/DL (2.3-4.5); POTASSIUM 3.8 MMOL/L (3.5-5.1); SODIUM 123 MMOL/L (135-145); TOTAL CARBON DIOXIDE 22.5 MMOL/L (24-32); eGFR 90 ML/MIN
[2021-03-30 15:00] VITALS: BP 138/71
--- NOTE | 2021-03-30 18:20 | NUR ---
Problems reprioritized. Patient report given, questions answered & plan of care reviewed with STEPHEN Alan.
[2021-03-30 19:00] VITALS: BP 157/84
[2021-03-30] MEDS: acetaminophen 325mg tablet PO PRN (20:19)
[2021-03-30 20:20] LABS: ALBUMIN 2.5 G/DL (3.4-5.0); ANION GAP 10 (8-16); BLOOD UREA NITROGEN 8 MG/DL (7-18); BUN/CREATININE RATIO 9.4 (5.4-32.0); CALCIUM 8.2 MG/DL (8.5-10.1); CHLORIDE 91 MMOL/L (99-107); CREATININE 0.85 MG/DL (0.60-1.10); GLUCOSE 138 MG/DL (70-104); MAGNESIUM 1.7 MG/DL (1.5-2.4); POTASSIUM 3.6 MMOL/L (3.5-5.1); SODIUM 125 MMOL/L (135-145); TOTAL CARBON DIOXIDE 23.6 MMOL/L (24-32); eGFR 90 ML/MIN
[2021-03-30] MEDS: enoxaparin 40mg/0.4ml syringe SQ SCH (20:52)
[2021-03-30] MEDS: pantoprazole 40mg Tablet.DR PO SCH (20:53)
[2021-03-30 23:00] VITALS: BP 125/63
[2021-03-31 03:00] VITALS: BP 136/64
[2021-03-31 07:00] VITALS: BP 123/60
--- NOTE | 2021-03-31 07:07 | NUR ---
Patient in room PCU 3028. I have received report from Dayanna MITCHELL and had the opportunity to ask questions and assume patient care. Pt alert to voice, semi fowlers in bed. fluid restriction pt education completed. pt verbalized understanding. SRx2, BLL, CL within reach. no s/sx acute distress.
[2021-03-31 07:13] LABS: BASOPHILS # (AUTO) 0.1 X10'3 (0-0.2); BASOPHILS % (AUTO) 1.3 % (0-1); EOSINOPHILS # (AUTO) 0.7 X10'3 (0-0.9); EOSINOPHILS % (AUTO) 8.2 % (0-6); HEMATOCRIT 29.1 % (42.0-52.0); HEMOGLOBIN 10.2 g/dl (14.0-17.9); LYMPHOCYTES # (AUTO) 1.7 X10'3 (1.1-4.8); LYMPHOCYTES % (AUTO) 21.1 % (21-51); MEAN CORPUSCULAR HEMOGLOBIN 30.8 PG (27.0-31.0); MEAN CORPUSCULAR HGB CONC 34.9 g/dL (33.0-36.5); MEAN CORPUSCULAR VOLUME 88.3 FL (78-98); MEAN PLATELET VOLUME 7.2 FL (7.4-10.4); MONOCYTES # (AUTO) 0.8 X10'3 (0-0.9); MONOCYTES % (AUTO) 10.3 % (2-12); NEUTROPHILS # (AUTO) 4.7 X10'3 (1.8-7.7); NEUTROPHILS % (AUTO) 59.1 % (42-75); PLATELET COUNT 400 X10'3 (140-440); RED CELL DISTRIBUTION WIDTH 13.6 % (11.5-14.5)
[2021-03-31 07:28] LABS: ALANINE AMINOTRANSFERASE 65 U/L (12-78); ALBUMIN 2.3 G/DL (3.4-5.0); ALBUMIN/GLOBULIN RATIO 0.6 (1.1-1.5); ALKALINE PHOSPHATASE 173 IU/L (46-116); ANION GAP 9 (8-16); ASPARTATE AMINO TRANSFERASE 56 U/L (10-37); BILIRUBIN,TOTAL 0.9 MG/DL (0.1-1.0); BLOOD UREA NITROGEN 5 MG/DL (7-18); BUN/CREATININE RATIO 8.2 (5.4-32.0); CALCIUM 8.4 MG/DL (8.5-10.1); CHLORIDE 93 MMOL/L (99-107); CREATININE 0.61 MG/DL (0.60-1.10); GLUCOSE 99 MG/DL (70-104); MAGNESIUM 1.6 MG/DL (1.5-2.4); PHOSPHORUS 2.8 MG/DL (2.3-4.5); POTASSIUM 3.9 MMOL/L (3.5-5.1); SODIUM 125 MMOL/L (135-145); TOTAL CARBON DIOXIDE 22.7 MMOL/L (24-32); TOTAL PROTEIN 6.2 G/DL (6.4-8.2); eGFR > 90 ML/MIN
[2021-03-31] MEDS: atorvastatin 20mg tablet PO SCH (08:53)
[2021-03-31] MEDS: aspirin 81mg tab.chew PO SCH (08:53)
[2021-03-31] MEDS: clopidogrel 75mg tablet PO SCH (08:53)
[2021-03-31] MEDS: TOLVAPTAN 30 MG TABLET PO SCH (08:54)
[2021-03-31] MEDS: metoprolol tartrate 25mg tablet PO SCH ×2 (08:54→19:56)
[2021-03-31] MEDS: pantoprazole 40mg Tablet.DR PO SCH ×2 (08:54→19:51)
[2021-03-31 08:58] LABS: OSMOLALITY 252 MOSM/K (280-300)
[2021-03-31 11:00] VITALS: BP 145/91
--- NOTE | 2021-03-31 12:28 | NUR ---
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 Also DX esophagitis/gastritis, CAD, HTN, and possible SIADH as well as questionable pseudohyponatremia per MD note. Pt PO remains poor ~25% avg meals w/ occasional 100% at times on regular diet now starting 1.5L fluid-restriction today per MD recs. Noted LBM 03/25; RD d/w RN regarding routine bowel care this admit. RN reports pt states he had hip surgery one week prior and has not had BM since. Constipation likely impacting PO as well. Will monitor for PO trends once constipation resolves and additional protein/kcal needs this admit. Rec: 1. continue 1.5L fluid-restricted diet per MD 2. monitor for ONS needs once constipation resolves; hold ONS initially since now on fluid-restriction 3. routine bowel care; no BM since hip surgery last week per pt 4. weekly wts Addendum: 03/31/21 at [address] Amended: Links added.
[2021-03-31] MEDS: acetaminophen 325mg tablet PO PRN ×2 (14:59→23:45)
[2021-03-31 15:00] VITALS: BP 142/74
--- NOTE | 2021-03-31 16:30 | NUR ---
Problems reprioritized. Patient report given in prepartion for pt to transfer to Med Surg. , questions answered & plan of care reviewed with Jhony MITCHELL on [facility].
--- NOTE | 2021-03-31 16:37 | NUR ---
Called to give report to receiving nurse. nurse currently in report with charge and will call back.
--- NOTE | 2021-03-31 17:15 | NUR ---
Received report from Clarice on PCU.
--- NOTE | 2021-03-31 17:30 | NUR ---
Patient arrived on unit and into room 344A by wheelchair . He was alert and oriented x4. Patient was able to ambulate 200 feet just prior to arrival in unit with a FWW and SBA. Patient has call light and side table within reach. He is comfortable and in a good mood.
--- NOTE | 2021-03-31 18:35 | NUR ---
Problems reprioritized. Patient report given, questions answered & plan of care reviewed with STEPHEN Peres.
--- NOTE | 2021-03-31 18:35 | NUR ---
Patient in room ERWIN 344. I have received report from Jhony MITCHELL and Judy MITCHELL and had the opportunity to ask questions and assume patient care.
[2021-03-31] MEDS: sodium chloride 1gm tablet PO SCH ×2 (19:52→21:32)
[2021-03-31] MEDS: enoxaparin 40mg/0.4ml syringe SQ SCH (19:55)
[2021-03-31 23:30] VITALS: BP 131/72
--- NOTE | 2021-04-01 06:30 | NUR ---
Problems reprioritized. Patient report given, questions answered & plan of care reviewed with Mara MITCHELL.
--- NOTE | 2021-04-01 06:46 | NUR ---
Patient in room ERWIN 344. I have received report from Larisa MITCHELL and had the opportunity to ask questions and assume patient care.
[2021-04-01 07:12] LABS: BASOPHILS # (AUTO) 0.1 X10'3 (0-0.2); BASOPHILS % (AUTO) 1.5 % (0-1); EOSINOPHILS # (AUTO) 0.5 X10'3 (0-0.9); HEMATOCRIT 31.4 % (42.0-52.0); LYMPHOCYTES # (AUTO) 1.4 X10'3 (1.1-4.8); LYMPHOCYTES % (AUTO) 21.4 % (21-51); MEAN CORPUSCULAR HEMOGLOBIN 30.8 PG (27.0-31.0); MEAN CORPUSCULAR HGB CONC 34.8 g/dL (33.0-36.5); MEAN CORPUSCULAR VOLUME 88.5 FL (78-98); MEAN PLATELET VOLUME 7.6 FL (7.4-10.4); MONOCYTES # (AUTO) 0.7 X10'3 (0-0.9); MONOCYTES % (AUTO) 10.8 % (2-12); NEUTROPHILS # (AUTO) 3.9 X10'3 (1.8-7.7); NEUTROPHILS % (AUTO) 59.3 % (42-75); PLATELET COUNT 404 X10'3 (140-440); RED BLOOD COUNT 3.55 X10'6 (4.70-6.10); RED CELL DISTRIBUTION WIDTH 13.8 % (11.5-14.5); WHITE BLOOD COUNT 6.7 X10'3 (4.5-11.0)
[2021-04-01 07:13] LABS: ALANINE AMINOTRANSFERASE 74 U/L (12-78); ALBUMIN 2.6 G/DL (3.4-5.0); ALBUMIN/GLOBULIN RATIO 0.6 (1.1-1.5); ALKALINE PHOSPHATASE 175 IU/L (46-116); ANION GAP 10 (8-16); ASPARTATE AMINO TRANSFERASE 51 U/L (10-37); BLOOD UREA NITROGEN 5 MG/DL (7-18); BUN/CREATININE RATIO 6.8 (5.4-32.0); CALCIUM 8.8 MG/DL (8.5-10.1); CHLORIDE 94 MMOL/L (99-107); CREATININE 0.73 MG/DL (0.60-1.10); GLUCOSE 100 MG/DL (70-104); MAGNESIUM 1.8 MG/DL (1.5-2.4); PHOSPHORUS 3.4 MG/DL (2.3-4.5); POTASSIUM 3.8 MMOL/L (3.5-5.1); SODIUM 129 MMOL/L (135-145); TOTAL CARBON DIOXIDE 25.2 MMOL/L (24-32); TOTAL PROTEIN 6.7 G/DL (6.4-8.2); eGFR > 90 ML/MIN
[2021-04-01 07:30] VITALS: BP 140/86
--- NOTE | 2021-04-01 09:00 | NUR ---
phoned Pharmacy, no Lma po on floor or in pt specific. They will send up.
[2021-04-01] MEDS: pantoprazole 40mg Tablet.DR PO SCH (10:04)
[2021-04-01] MEDS: aspirin 81mg tab.chew PO SCH (10:04)
[2021-04-01] MEDS: clopidogrel 75mg tablet PO SCH (10:05)
[2021-04-01] MEDS: metoprolol tartrate 25mg tablet PO SCH (10:05)
[2021-04-01] MEDS: sodium chloride 1gm tablet PO SCH ×2 (10:05→12:39)
[2021-04-01] MEDS: atorvastatin 20mg tablet PO SCH (10:05)
[2021-04-01 11:00] VITALS: BP 162/84
[2021-04-01] MEDS ORDERED: PANT40TA54 PO (12:10)
[2021-04-01] MEDS ORDERED: SODI1TAB2 PO (12:10)
[2021-04-01] MEDS: TOLVAPTAN 30 MG TABLET PO SCH (12:34)
--- NOTE | 2021-04-01 15:10 | NUR ---
Pt stable and appropriate for discharge. No PIV. Reviewed with pt all d/c instructions, meds and follow up with pt given opportunity to ask questions, answers provided and pt verbalizing understanding. Prescriptions escripted to pharmacy of choice. Pt to call PCP and Dr Meyer to schedule appts, and to call PCP with any questions/concerns/worsening symptoms, or return to nearest ED. Pt states he has all personal belongings. Pt escorted to front lobby via w/c by staff member. Driven home in private vehicle by family friend.
--- NOTE | 2021-04-02 13:34 | NUR ---
CASE MANAGEMENT DISCHARGE FOLLOW UP: T/c to pt, straight to voicemail, inbox full, unable to leave message. 0354 T/c to Rochelle, pt's roommate, she states that pt's phone is not currently working and that she is out for an appointment. Requests that this nurse callback at 1530, this nurse will try again at that time. Addendum: 04/02/21 at 1557 by Maggie King RN 1540 Spoke with pt via telephone. Reports that he is doing a lot better, a lot more comfortable, ambulating regularly around house, states weakness is improving; denies N/V, dizziness, CP, SOB. Verbalizes understanding of s/sx requiring further evaluation/emergent assistance. Verbalizes understanding of new and current medications. Verbalizes compliance with MD discharge instructions; states that he knows he needs to stop drinking and has not missed it since he discharged, states that he thinks he was only drinking because he was bored, states will have to find new hobby. States adhering to 2L fluid restriction, measuring intake, also pt states avoiding NSAIDS and acidic food. Verbalizes understanding of the importance in making/keeping follow-up appointments, will call in the AM, "needed a day to decompress" before starting f/u scheduling, declines assistance. Pt states going to t/c to [facility], advised BIJAL was sent yesterday, he verbalizes understanding. States no further questions/concerns at this time.
== END 2021-04-01 15:10 | disposition home health service (06) | DRG 641 ==
LOC: ER 16:02 → ED HOLD 20:22 → CICU 2S 21:54 → PCU 3S 03-28 17:00 → SUR 3N 03-31 17:15
PROVIDERS: ADMIT Internal Medicine; ATTEND Internal Medicine
PROC: 06HY33Z Insertion of Infusion Device into Lower Vein, Percutaneous Approach (ICD-10-PCS; principal; 2021-03-26)
PROC: 0DB48ZX Excision of Esophagogastric Junction, Via Natural or Artificial Opening Endoscopic, Diagnostic (ICD-10-PCS; 2021-03-29)
PROC: 0DB68ZX Excision of Stomach, Via Natural or Artificial Opening Endoscopic, Diagnostic (ICD-10-PCS; 2021-03-29)
DX: E87.1 Hypo-osmolality and hyponatremia (principal); E86.0 Dehydration; K21.00 Gastro-esophageal reflux disease with esophagitis, without bleeding; I10 Essential (primary) hypertension; E87.6 Hypokalemia; E83.42 Hypomagnesemia; D64.9 Anemia, unspecified; G89.29 Other chronic pain; M54.9 Dorsalgia, unspecified; E11.9 Type 2 diabetes mellitus without complications; I25.10 Atherosclerotic heart disease of native coronary artery without angina pectoris; E78.5 Hyperlipidemia, unspecified; J43.9 Emphysema, unspecified; K29.70 Gastritis, unspecified, without bleeding; Z95.5 Presence of coronary angioplasty implant and graft; Z87.891 Personal history of nicotine dependence; I25.2 Old myocardial infarction; Z82.49 Family history of ischemic heart disease and other diseases of the circulatory system; Z83.3 Family history of diabetes mellitus; Z86.73 Personal history of transient ischemic attack (TIA), and cerebral infarction without residual deficits; Z88.8 Allergy status to other drugs, medicaments and biological substances; Z88.5 Allergy status to narcotic agent; Z91.018 Allergy to other foods; Z79.899 Other long term (current) drug therapy; Z79.82 Long term (current) use of aspirin
CPT/HCPCS: 36415; 43239; 71045; 80048; 80051; 80053; 80320; 81001; 81003; 82570; 82948; 83690; 83735; 83930; 83935; 84100; 84133; 84300; 84443; 84484; 85025; 85610; 85730; 87081; 93005; 96365; 96375; 97110; 97116; 97161; 97530; 99152; 99291; A4620; C9113; G0378; J0780; J1650; J1885; J1940; J2250; J2270; J2405; J3010; J3475; J3480; J7030; J7040; J7060; J7131

== ENCOUNTER 2021-05-30 08:39 | Day surgery (SDC) | payer MEDICARE, MEDICAID ==
[~2021-05-30] VITALS: Ht 172.7 cm; Wt 79.0 kg
[~2021-05-30 08:39] MED LIST changes: -ENOX40DI11 SQ; +HYDR-3964 PO; -HYDR-3965 PO; +PANT40TA54 PO; +SODI1TAB2 PO
[2021-05-30 08:56] VITALS: BP 155/95
[2021-05-30 10:13] VITALS: BP 142/59
[2021-05-30 10:32] VITALS: BP 121/56
[2021-05-30 10:42] VITALS: BP 125/65
[2021-05-30 10:43] LABS: BASOPHILS # (AUTO) 0.1 X10'3 (0-0.2); BASOPHILS % (AUTO) 0.9 % (0-1); EOSINOPHILS # (AUTO) 0.2 X10'3 (0-0.9); EOSINOPHILS % (AUTO) 1.8 % (0-6); HEMATOCRIT 36.8 % (42.0-52.0); HEMOGLOBIN 12.1 g/dl (14.0-17.9); LYMPHOCYTES # (AUTO) 2.6 X10'3 (1.1-4.8); LYMPHOCYTES % (AUTO) 23.1 % (21-51); MEAN CORPUSCULAR HEMOGLOBIN 28.9 PG (27.0-31.0); MEAN CORPUSCULAR HGB CONC 32.9 g/dL (33.0-36.5); MEAN CORPUSCULAR VOLUME 87.8 FL (78-98); MEAN PLATELET VOLUME 7.4 FL (7.4-10.4); MONOCYTES # (AUTO) 0.9 X10'3 (0-0.9); MONOCYTES % (AUTO) 8.5 % (2-12); NEUTROPHILS # (AUTO) 7.4 X10'3 (1.8-7.7); NEUTROPHILS % (AUTO) 65.7 % (42-75); PLATELET COUNT 365 X10'3 (140-440); RED BLOOD COUNT 4.19 X10'6 (4.70-6.10); RED CELL DISTRIBUTION WIDTH 15.8 % (11.5-14.5); WHITE BLOOD COUNT 11.2 X10'3 (4.5-11.0)
[2021-05-30 10:55] VITALS: BP 127/72
[2021-05-30 11:03] LABS: ALANINE AMINOTRANSFERASE 24 U/L (12-78); ALBUMIN 3.4 G/DL (3.4-5.0); ALBUMIN/GLOBULIN RATIO 0.8 (1.1-1.5); ALKALINE PHOSPHATASE 158 IU/L (46-116); ANION GAP 8 (8-16); ASPARTATE AMINO TRANSFERASE 22 U/L (10-37); BLOOD UREA NITROGEN 13 MG/DL (7-18); BUN/CREATININE RATIO 16.7 (5.4-32.0); CALCIUM 8.8 MG/DL (8.5-10.1); CHLORIDE 96 MMOL/L (99-107); CREATININE 0.78 MG/DL (0.60-1.10); GLUCOSE 99 MG/DL (70-104); POTASSIUM 3.3 MMOL/L (3.5-5.1); SODIUM 129 MMOL/L (135-145); TOTAL CARBON DIOXIDE 24.6 MMOL/L (24-32); TOTAL PROTEIN 7.5 G/DL (6.4-8.2); eGFR > 90 ML/MIN
[2021-05-30] MEDS ORDERED: CHLO25TA10 PO (11:10)
[2021-05-30] MEDS ORDERED: PANT40TA54 PO (14:13)
[2021-05-30] MEDS ORDERED: FLUT16SP2 BOTHNARES (14:13)
[2021-05-30] MEDS ORDERED: ACET-1008 PO (14:13)
== END 2021-05-30 11:15 | disposition home or self-care (01) ==
LOC: SSTAY O 08:39
PROVIDERS: ATTEND Radiology Vascular & Interventional Radiology
DX: R59.0 Localized enlarged lymph nodes (principal); R22.1 Localized swelling, mass and lump, neck; I25.10 Atherosclerotic heart disease of native coronary artery without angina pectoris; I10 Essential (primary) hypertension; E78.5 Hyperlipidemia, unspecified; E87.1 Hypo-osmolality and hyponatremia; Z86.73 Personal history of transient ischemic attack (TIA), and cerebral infarction without residual deficits; Z87.891 Personal history of nicotine dependence; Z88.8 Allergy status to other drugs, medicaments and biological substances; Z88.5 Allergy status to narcotic agent; Z91.018 Allergy to other foods; Z79.01 Long term (current) use of anticoagulants; Z79.82 Long term (current) use of aspirin; Z79.899 Other long term (current) drug therapy
CPT/HCPCS: 10005; 20206; 36415; 80053; 85025

== ENCOUNTER 2021-06-05 05:14 | Observation (INO) | payer MEDICARE, MEDICAID ==
[2021-06-05] VITALS (24 sets, daily range): BP systolic 112–173; BP diastolic 61–92
[~2021-06-05] VITALS: Ht 172.7 cm; Wt 79.5 kg
[~2021-06-05 05:14] MED LIST changes: +ACET-1008 PO; +CHLO25TA10 PO; +DOCUMENT DATE & TIME OF BETA-BLOCKER PO ONE; +FLUT16SP2 BOTHNARES; -HYDR-3964 PO; -SODI1TAB2 PO; -TRAM50TA2 PO; +cefazolin/dext.iso 2gm/100ml IV ONE; +famotidine 20mg tablet PO ONE; +ringers solution, lacted 1,000 ML IV SCH
[2021-06-05] MEDS ORDERED: fentaNYL/PF 50MCG/1 ML 2ML syringe ONE (06:40)
[2021-06-05] MEDS ORDERED: midazolam 1 mg/ML 2ml injection ONE (06:40)
[2021-06-05] MEDS ORDERED: LIDOcaine 2% (20mg/ml) 5ml vial ONE (06:41)
[2021-06-05] MEDS ORDERED: propofol inj 20 ML IV ONE (06:41)
[2021-06-05] MEDS ORDERED: ondansetron/PF 4mg/2ml inj ONE (06:41)
[2021-06-05] MEDS ORDERED: neostigmine methylsulfate 1 MG/ML 10ml vial ONE (06:41)
[2021-06-05] MEDS ORDERED: dexamethasone sod phosphate 4mg/ml inj. ONE (06:41)
[2021-06-05] MEDS ORDERED: glycopyrrolate 0.2mg/ml inj ONE (06:41)
[2021-06-05] MEDS ORDERED: rocuronium 10mg/ml inj IV ONE (06:41)
[2021-06-05] MEDS ORDERED: morphine 2 MG/ML inj. syringe IV PRN (06:45)
[2021-06-05] MEDS ORDERED: labetalol 20mg/4ml (5mg/ml) syringe IV PRN (06:45)
[2021-06-05] MEDS ORDERED: hydrALAZINE 20mg/ml inj. IV PRN (06:45)
[2021-06-05] MEDS ORDERED: fentaNYL/PF 50MCG/1 ML 2ML syringe IV PRN ×2 (06:45)
[2021-06-05] MEDS ORDERED: ringers solution, lacted 1,000 ML IV SCH (06:45)
[2021-06-05] MEDS ORDERED: morphine 4 MG/ML inj SYRINge IV PRN (06:45)
[2021-06-05] MEDS ORDERED: ondansetron/PF 4mg/2ml inj IV PRN ×2 (06:45→08:55)
[2021-06-05] MEDS ORDERED: sevoflurane 250ml liquid IH ONE (06:51)
[2021-06-05 07:14] LABS: PARTIAL THROMBOPLASTIN TIME 24 SECONDS (22-32)
--- NOTE | 2021-06-05 08:42 | NUR ---
Received from OR via [facility] , accompanied by Anesthesiologist RASHAAD and report given by Anesthesiolgist. PATIENT WITH SMALL UPPER STERNAL DRESSING WITH CDI OP SITE. VSS. 20G PIV IN LEFT HAND RUNNING LR AT 100. PATIENT WITH 10L MASK ON WITH 100% SATRUATIONS. ART LINE IN RIGHT UE. Addendum: 06/05/21 at 0813 by Solo Rogers RN, RN Amended: Links added.
[2021-06-05] MEDS ORDERED: HYDROcodone/acetaminophen 10/325mg tab PO PRN (08:55)
--- NOTE | 2021-06-05 10:20 | NUR ---
I have received report from STEPHEN Banda and had the opportunity to ask questions and assume patient care.
--- NOTE | 2021-06-05 10:25 | NUR ---
Pt transferred to surgical floor from OR via gurney. One bag of belongings and eye glasses transferred with patient. Pt transferred to hospital bed and post op VS started. Call light within reach. Will continue to monitor.
--- NOTE | 2021-06-05 10:32 | NUR ---
PATIENT HAS MET ALL CRITERIA FOR TRANSFER TO THE SURGICAL/NOAH/PCU/ORTHO/ICU FLOOR. VSS. DRESSINGS INTACT. BED LOW, CALL LIGHT PRESENT AND 2 RAILS UP. RN PRESENT TO ACCEPT CARE OF PATIENT AND REPORT HAS BEEN CALLED. ALL QUESTIONS ANSWERED TO ACCEPTING RN. STEPHEN BARROSO ASSISTED WITH PASSIVE TRANSFER WITH SLIDE BOARD FROM [facility] TO BED. ROLLLED AND SKIN CHECKED BY 2 RNS, DARREL CDI. POSITIONED TO COMFORT. VSS AND CARE TURNED OVER TO LO. Addendum: 06/05/21 at 1039 by Solo Whitaker - STEPHEN RN Amended: Links added.
--- NOTE | 2021-06-05 18:43 | NUR ---
Problems reprioritized. Patient report given, questions answered & plan of care reviewed with STEPHEN Shipley.
--- NOTE | 2021-06-05 19:00 | NUR ---
Patient in room ERWIN 354. I have received report from Lillian MITCHELL and had the opportunity to ask questions and assume patient care.
[2021-06-05] MEDS: potassium CL 20mEq in D5-1/2NS 1,000 ML IV SCH (21:03)
[2021-06-06] MEDS: potassium CL 20mEq in D5-1/2NS 1,000 ML IV SCH (04:55)
--- NOTE | 2021-06-06 06:39 | NUR ---
Problems reprioritized. Patient report given, questions answered & plan of care reviewed with Madina MITCHELL.
[2021-06-06 07:00] VITALS: BP 137/77
[2021-06-06 11:00] VITALS: BP 134/71
== END 2021-06-06 15:00 | disposition home or self-care (01) ==
LOC: PAS 05:14 → SUR 3N 08:51
PROVIDERS: ADMIT Surgery; ATTEND Surgery
DX: C85.28 Mediastinal (thymic) large B-cell lymphoma, lymph nodes of multiple sites (principal); I25.10 Atherosclerotic heart disease of native coronary artery without angina pectoris; I25.2 Old myocardial infarction; J44.9 Chronic obstructive pulmonary disease, unspecified; Z79.899 Other long term (current) drug therapy; Z79.82 Long term (current) use of aspirin; Z79.01 Long term (current) use of anticoagulants; Z79.02 Long term (current) use of antithrombotics/antiplatelets; Z88.8 Allergy status to other drugs, medicaments and biological substances; Z86.73 Personal history of transient ischemic attack (TIA), and cerebral infarction without residual deficits
CPT/HCPCS: 36415; 39401; 71045; 82948; 85610; 85730; 86885; 86900; 86901; 88184; 88185; 88341; 96361; 96374; 96375; A6258; G0378; J0360; J1100; J2001; J2250; J2270; J2405; J2704; J2710; J3010; J3480; J7120; 88173; 88305; 88307; 88331; A4215; A4618; A7000; J3490

== ENCOUNTER 2021-08-21 09:28 | Outpatient (CLI) | payer MEDICARE, MEDICAID ==
[~2021-08-21 09:28] MED LIST changes: -DOCUMENT DATE & TIME OF BETA-BLOCKER PO ONE; -cefazolin/dext.iso 2gm/100ml IV ONE; -famotidine 20mg tablet PO ONE; -ringers solution, lacted 1,000 ML IV SCH
[2021-08-21 10:42] LABS: BASOPHILS # (AUTO) 0.1 X10'3 (0-0.2); BASOPHILS % (AUTO) 0.8 % (0-1); EOSINOPHILS # (AUTO) 0.3 X10'3 (0-0.9); EOSINOPHILS % (AUTO) 3.3 % (0-6); HEMOGLOBIN 13.4 g/dl (14.0-17.9); LYMPHOCYTES # (AUTO) 1.7 X10'3 (1.1-4.8); LYMPHOCYTES % (AUTO) 22.3 % (21-51); MEAN CORPUSCULAR HEMOGLOBIN 31.3 PG (27.0-31.0); MEAN CORPUSCULAR HGB CONC 35.2 g/dL (33.0-36.5); MEAN PLATELET VOLUME 6.8 FL (7.4-10.4); MONOCYTES # (AUTO) 0.7 X10'3 (0-0.9); NEUTROPHILS % (AUTO) 64.6 % (42-75); PLATELET COUNT 338 X10'3 (140-440); RED BLOOD COUNT 4.27 X10'6 (4.70-6.10); RED CELL DISTRIBUTION WIDTH 14.2 % (11.5-14.5); WHITE BLOOD COUNT 7.7 X10'3 (4.5-11.0)
[2021-08-21 11:30] LABS: ALANINE AMINOTRANSFERASE 31 U/L (12-78); ALBUMIN 3.6 G/DL (3.4-5.0); ALBUMIN/GLOBULIN RATIO 0.8 (1.1-1.5); ALKALINE PHOSPHATASE 198 IU/L (46-116); ANION GAP 10 (8-16); ASPARTATE AMINO TRANSFERASE 39 U/L (10-37); BILIRUBIN,TOTAL 1.6 MG/DL (0.1-1.0); BLOOD UREA NITROGEN 8 MG/DL (7-18); BUN/CREATININE RATIO 10.1 (5.4-32.0); CALCIUM 8.4 MG/DL (8.5-10.1); CHLORIDE 84 MMOL/L (99-107); CREATININE 0.79 MG/DL (0.60-1.10); GLUCOSE 107 MG/DL (70-104); MAGNESIUM 1.9 MG/DL (1.5-2.4); PHOSPHORUS 3.1 MG/DL (2.3-4.5); SODIUM 121 MMOL/L (135-145); TOTAL CARBON DIOXIDE 26.6 MMOL/L (24-32); TOTAL PROTEIN 7.9 G/DL (6.4-8.2); eGFR > 90 ML/MIN
[2021-08-21 11:33] LABS: POTASSIUM 2.9 MMOL/L (3.5-5.1)
[2021-08-22 09:45] LABS: CLARITY,URINE CLEAR (Clear); COLOR,URINE YELLOW (Yellow); GLUCOSE, URINE NEGATIVE (Neg); KETONES,URINE NEGATIVE (Neg); LEUKOCYTE ESTERASE ,URINE NEGATIVE (Neg); NITRITES, URINE NEGATIVE (Neg); OCCULT BLOOD,URINE NEGATIVE (Neg); PROTEIN,URINE NEGATIVE (Neg); UA COLLECTION TYPE CLN CATCH MIDSTREAM; UROBILINOGEN,URINE 0.2 E.U/dL (0.2-1.0)
[2021-08-22 10:07] LABS: UA PROTEIN/CREATININE RATIO 0.18 mg/mg Cr (0-0.16)
== END 2021-08-21 23:59 | disposition home or self-care (01) ==
LOC: LAB 09:28
PROVIDERS: ATTEND Internal Medicine Critical Care Medicine
DX: N18.9 Chronic kidney disease, unspecified (principal); D63.1 Anemia in chronic kidney disease; N39.0 Urinary tract infection, site not specified; R80.9 Proteinuria, unspecified; R82.90 Unspecified abnormal findings in urine; R77.0 Abnormality of albumin; E83.52 Hypercalcemia; E83.42 Hypomagnesemia; E83.30 Disorder of phosphorus metabolism, unspecified
CPT/HCPCS: 36415; 80053; 81003; 82043; 82306; 82570; 83735; 83970; 84100; 84156; 85025

== ENCOUNTER 2021-09-09 09:33 | Outpatient (CLI) | payer MEDICARE, MEDICAID ==
[2021-09-09 10:39] LABS: ALBUMIN 3.4 G/DL (3.4-5.0); ANION GAP 12 (8-16); BLOOD UREA NITROGEN 7 MG/DL (7-18); BUN/CREATININE RATIO 7.8 (5.4-32.0); CALCIUM 8.9 MG/DL (8.5-10.1); CHLORIDE 98 MMOL/L (99-107); GLUCOSE 97 MG/DL (70-104); PHOSPHORUS 3.4 MG/DL (2.3-4.5); POTASSIUM 4.1 MMOL/L (3.5-5.1); SODIUM 133 MMOL/L (135-145); TOTAL CARBON DIOXIDE 23.2 MMOL/L (24-32); eGFR 84 ML/MIN
== END 2021-09-09 23:59 | disposition home or self-care (01) ==
LOC: LAB 09:33
PROVIDERS: ATTEND Internal Medicine Critical Care Medicine
DX: N18.9 Chronic kidney disease, unspecified (principal); R94.09 Abnormal results of other function studies of central nervous system
CPT/HCPCS: 36415; 80069

== ENCOUNTER → 2021-09-13 | Outpatient (CLI) | payer MEDICARE, MEDICAID ==
[2021-09-13 11:49] LABS: GLUCOSE 98 MG/DL (70-104); SODIUM 128 MMOL/L (135-145)
[2021-09-13 11:50] LABS: ALBUMIN 3.5 G/DL (3.4-5.0); ANION GAP 8 (8-16); BLOOD UREA NITROGEN 8 MG/DL (7-18); BUN/CREATININE RATIO 9.5 (5.4-32.0); CALCIUM 9.3 MG/DL (8.5-10.1); CHLORIDE 96 MMOL/L (99-107); CREATININE 0.84 MG/DL (0.60-1.10); PHOSPHORUS 3.3 MG/DL (2.3-4.5); POTASSIUM 4.2 MMOL/L (3.5-5.1); TOTAL CARBON DIOXIDE 23.8 MMOL/L (24-32); eGFR > 90 ML/MIN
== END | disposition home or self-care (01) ==
LOC: LAB 09:56
PROVIDERS: ATTEND Internal Medicine Critical Care Medicine
DX: N18.4 Chronic kidney disease, stage 4 (severe) (principal); R94.01 Abnormal electroencephalogram [EEG]
CPT/HCPCS: 36415; 80069

== ENCOUNTER 2021-09-23 17:26 | Inpatient (IN) | payer MEDICARE, MEDICAID ==
[~2021-09-23] VITALS: Ht 175.3 cm; Wt 79.3 kg
[2021-09-23 19:59] LABS: EOSINOPHILS % (AUTO) 0.1 % (0-6); HEMOGLOBIN 11.6 g/dl (14.0-17.9); LYMPHOCYTES # (AUTO) 0.4 X10'3 (1.1-4.8); LYMPHOCYTES % (AUTO) 2.3 % (21-51); MEAN PLATELET VOLUME 7.1 FL (7.4-10.4); MONOCYTES # (AUTO) 0.7 X10'3 (0-0.9); NEUTROPHILS # (AUTO) 14.7 X10'3 (1.8-7.7)
[2021-09-23 20:00] LABS: BASOPHILS % (AUTO) 0.3 % (0-1); HEMATOCRIT 34.6 % (42.0-52.0); MEAN CORPUSCULAR HEMOGLOBIN 30.1 PG (27.0-31.0); MEAN CORPUSCULAR HGB CONC 33.5 g/dL (33.0-36.5); MONOCYTES % (AUTO) 4.6 % (2-12); NEUTROPHILS % (AUTO) 92.7 % (42-75); PLATELET COUNT 373 X10'3 (140-440); RED BLOOD COUNT 3.85 X10'6 (4.70-6.10); WHITE BLOOD COUNT 15.9 X10'3 (4.5-11.0)
[2021-09-23 20:12] LABS: ALANINE AMINOTRANSFERASE 29 U/L (12-78); ALBUMIN 3.4 G/DL (3.4-5.0); ALBUMIN/GLOBULIN RATIO 0.7 (1.1-1.5); ALKALINE PHOSPHATASE 185 IU/L (46-116); ANION GAP 12 (8-16); ASPARTATE AMINO TRANSFERASE 22 U/L (10-37); BLOOD UREA NITROGEN 11 MG/DL (7-18); BUN/CREATININE RATIO 7.7 (5.4-32.0); CALCIUM 8.9 MG/DL (8.5-10.1); CHLORIDE 92 MMOL/L (99-107); CREATININE 1.42 MG/DL (0.60-1.10); GLUCOSE 115 MG/DL (70-104); SODIUM 122 MMOL/L (135-145); TOTAL CARBON DIOXIDE 17.6 MMOL/L (24-32); TOTAL PROTEIN 8.4 G/DL (6.4-8.2); eGFR 50 ML/MIN
[2021-09-23] MEDS ORDERED: normal saline 1000ml 1,000 ML IV ONE (23:05)
[2021-09-23] MEDS ORDERED: iohexol 300mg/ml 100ml inj. ONE (23:29)
[2021-09-24] MEDS ORDERED: vancomycin 125mg/5ml ORAL solution 5ml UD oral syringe PO ONE (03:29)
[2021-09-24] MEDS ORDERED: mag hydrox/Alum hydrox/simeth 30ml oral suspension PO PRN (04:20)
[2021-09-24] MEDS ORDERED: diphenhydrAMINE 50 mg/ml inj IV PRN (04:20)
[2021-09-24] MEDS ORDERED: acetaminophen 650mg rectal suppository RC PRN (04:20)
[2021-09-24] MEDS ORDERED: diphenhydrAMINE 25mg capsule PO PRN (04:20)
[2021-09-24] MEDS ORDERED: magnesium hydroxide 30ml (MOM) UD suspension PO PRN (04:20)
[2021-09-24] MEDS ORDERED: bisacodyl 10mg suppository rectal RC PRN (04:20)
[2021-09-24] MEDS ORDERED: HYDROcodone/acetaminophen 5mg/325mg tablet PO PRN (04:20)
[2021-09-24] MEDS ORDERED: morphine 2 MG/ML inj. syringe IV PRN ×2 (04:20)
[2021-09-24] MEDS ORDERED: acetaminophen 325mg tablet PO PRN ×2 (04:20)
[2021-09-24] MEDS ORDERED: ondansetron 4mg rapidly disintigrating tab PO PRN (04:20)
[2021-09-24] MEDS ORDERED: ondansetron/PF 4mg/2ml inj IV PRN (04:20)
[2021-09-24] MEDS ORDERED: HYDROmorphone inj. 0.5 MG/0.5 ML DISP.SYRIN IV PRN (04:20)
[2021-09-24] MEDS: normal saline 1000ml 1,000 ML IV SCH ×2 (04:42→14:20)
[2021-09-24 04:52] LABS: MAGNESIUM 2.1 MG/DL (1.5-2.4); PHOSPHORUS 3.1 MG/DL (2.3-4.5)
[2021-09-24] MEDS: docusate sod 100mg capsule PO SCH ×2 (07:55→19:47)
[2021-09-24] MEDS: pantoprazole 40 MG vial IV SCH (08:39)
[2021-09-24] MEDS: piperacillin/tazo 4.5gm/100ml 100 ML IV SCH ×2 (08:40→16:53)
[2021-09-24] MEDS: heparin, porcine 5000 units/ml vial SQ SCH ×2 (08:40→20:02)
[2021-09-24 09:05] LABS: PARTIAL THROMBOPLASTIN TIME 28 SECONDS (22-32)
[2021-09-24] MEDS ORDERED: SODI1TAB2 PO (09:54)
[2021-09-24] MEDS ORDERED: SPIR25TA5 PO (09:54)
[2021-09-24] MEDS ORDERED: ERGO500054 PO (09:54)
[2021-09-24 15:01] LABS: CLARITY,URINE CLEAR (Clear); COLOR,URINE YELLOW (Yellow); GLUCOSE, URINE NEGATIVE (Neg); KETONES,URINE Trace mg/dl (Neg); PROTEIN,URINE NEGATIVE (Neg); UA COLLECTION TYPE NON-SPECIFIED
[2021-09-24 15:02] LABS: LEUKOCYTE ESTERASE ,URINE NEGATIVE (Neg); NITRITES, URINE NEGATIVE (Neg); OCCULT BLOOD,URINE NEGATIVE (Neg); UROBILINOGEN,URINE 0.2 E.U/dL (0.2-1.0)
--- NOTE | 2021-09-24 15:28 | NUR ---
CALL FROM [facility] STATES STOOL REJECTED FOR C DIFF TEST DUE TO MUCUS AND "PLANT" MATERIAL IN SPECIMEN. Addendum: 09/24/21 at 1721 by TOYA JOSE RAMON GALLEGOS
[2021-09-24 16:15] LABS: OCCULT BLOOD STOOL POSITIVE (Neg)
--- NOTE | 2021-09-24 16:15 | NUR ---
stool and UA sample collected at bedside. green mucous like stool collected pt. turned and cleaned and given new linens. mild redness and rash noted on buttocks near anal cavity. no swelling or bleeding noted. zosyn and maint fluid. Not attached since new iv placed this morning. Condom cath detached. paging hospitalist to assess for thompson insertion and cream for erythema
[2021-09-24] MEDS ORDERED: LIDOcaine 2% 10ml TOPICAL JELLY (Urojet) TP ONE (16:45)
[2021-09-24] MEDS: lactobacillus rhamnosus 10,000 MMU CELLS/CAPSULE PO SCH (20:01)
[2021-09-24 21:00] VITALS: BP 137/68
[2021-09-24] MEDS ORDERED: temazepam 15mg capsule PO PRN (21:00)
--- NOTE | 2021-09-24 21:00 | NUR ---
Patient in room PCU 3020. I have received report from ed and had the opportunity to ask questions and assume patient care.
[2021-09-25] MEDS: normal saline 1000ml 1,000 ML IV SCH ×3 (01:00→20:20)
[2021-09-25] MEDS: piperacillin/tazo 4.5gm/100ml 100 ML IV SCH ×4 (01:00→16:33)
[2021-09-25 04:00] VITALS: BP 145/79
[2021-09-25 06:00] VITALS: BP 126/68
--- NOTE | 2021-09-25 06:31 | NUR ---
Patient in room PCU 3020. I have received report from Em MITCHELL and had the opportunity to ask questions and assume patient care.
--- NOTE | 2021-09-25 06:31 | NUR ---
Problems reprioritized. Patient report given, questions answered & plan of care reviewed with STEPHEN Lagunas.
[2021-09-25] MEDS: heparin, porcine 5000 units/ml vial SQ SCH ×2 (08:00→20:43)
[2021-09-25] MEDS: docusate sod 100mg capsule PO SCH ×2 (08:00→20:00)
[2021-09-25 09:11] LABS: BASOPHILS # (AUTO) 0.1 X10'3 (0-0.2); BASOPHILS % (AUTO) 0.5 % (0-1); EOSINOPHILS # (AUTO) 0.2 X10'3 (0-0.9); EOSINOPHILS % (AUTO) 1.3 % (0-6); HEMATOCRIT 36.2 % (42.0-52.0); HEMOGLOBIN 12.1 g/dl (14.0-17.9); LYMPHOCYTES % (AUTO) 6.5 % (21-51); MEAN CORPUSCULAR HEMOGLOBIN 30.3 PG (27.0-31.0); MEAN CORPUSCULAR HGB CONC 33.4 g/dL (33.0-36.5); MEAN CORPUSCULAR VOLUME 90.6 FL (78-98); MONOCYTES # (AUTO) 0.6 X10'3 (0-0.9); MONOCYTES % (AUTO) 4.2 % (2-12); NEUTROPHILS # (AUTO) 13.2 X10'3 (1.8-7.7); NEUTROPHILS % (AUTO) 87.5 % (42-75); PLATELET COUNT 311 X10'3 (140-440); RED CELL DISTRIBUTION WIDTH 13.9 % (11.5-14.5); WHITE BLOOD COUNT 15.1 X10'3 (4.5-11.0)
[2021-09-25 09:20] LABS: ALANINE AMINOTRANSFERASE 34 U/L (12-78); ALBUMIN 2.9 G/DL (3.4-5.0); ALBUMIN/GLOBULIN RATIO 0.6 (1.1-1.5); ALKALINE PHOSPHATASE 144 IU/L (46-116); ANION GAP 11 (8-16); ASPARTATE AMINO TRANSFERASE 42 U/L (10-37); BILIRUBIN,TOTAL 0.9 MG/DL (0.1-1.0); BLOOD UREA NITROGEN 11 MG/DL (7-18); BUN/CREATININE RATIO 10.4 (5.4-32.0); CALCIUM 8.7 MG/DL (8.5-10.1); CHLORIDE 94 MMOL/L (99-107); CREATININE 1.06 MG/DL (0.60-1.10); GLUCOSE 97 MG/DL (70-104); POTASSIUM 3.6 MMOL/L (3.5-5.1); SODIUM 127 MMOL/L (135-145); TOTAL CARBON DIOXIDE 21.9 MMOL/L (24-32); TOTAL PROTEIN 7.7 G/DL (6.4-8.2); eGFR 69 ML/MIN
[2021-09-25] MEDS: pantoprazole 40 MG vial IV SCH (09:34)
[2021-09-25] MEDS: HYDROcodone/acetaminophen 10/325mg tab PO PRN ×2 (09:35→14:45)
[2021-09-25] MEDS: lactobacillus rhamnosus 10,000 MMU CELLS/CAPSULE PO SCH ×2 (09:35→20:42)
[2021-09-25] MEDS: aspirin 81mg tab.chew PO SCH (09:35)
[2021-09-25] MEDS: metoprolol tartrate 50mg tablet PO SCH ×2 (09:36→20:42)
[2021-09-25] MEDS: chlorthalidone 25mg tablet PO SCH (09:36)
[2021-09-25] MEDS: atorvastatin 20mg tablet PO SCH (09:36)
[2021-09-25] MEDS: losartan 50mg tablet PO SCH (09:38)
[2021-09-25 11:00] VITALS: BP 103/68
--- NOTE | 2021-09-25 16:15 | NUR ---
Called to request records from [facility] per Dr. George
[2021-09-25 18:30] VITALS: BP 150/88
--- NOTE | 2021-09-25 18:43 | NUR ---
Problems reprioritized. Patient report given, questions answered & plan of care reviewed with Pat RN.
[2021-09-25 22:00] VITALS: BP 128/71
[2021-09-25] MEDS ORDERED: pantoprazole 40 MG vial IV ONE (23:10)
[2021-09-26] VITALS (11 sets, daily range): BP systolic 100–134; BP diastolic 42–75
[2021-09-26] MEDS: piperacillin/tazo 4.5gm/100ml 100 ML IV SCH ×2 (03:35→11:50)
[2021-09-26] MEDS ORDERED: pantoprazole 40mg Tablet.DR PO SCH (08:00)
[2021-09-26] MEDS: docusate sod 100mg capsule PO SCH ×2 (08:00→20:10)
--- NOTE | 2021-09-26 08:00 | NUR ---
aPROXIMATELY THIS TIME PT WAS SL, AMB TO [facility] WITH WALKER AND STANDBY ASSIST TRANSPORTED TO GI LAB
[2021-09-26] MEDS ORDERED: MIDAZolam 1 MG/ML 5ML VIAL ONE (08:17)
[2021-09-26] MEDS ORDERED: fentaNYL/PF 50MCG/1 ML 2ML syringe ONE (08:17)
[2021-09-26] MEDS ORDERED: LIDOcaine Viscous 15ml cup ONE (08:17)
[2021-09-26 08:22] LABS: BASOPHILS # (AUTO) 0.1 X10'3 (0-0.2); BASOPHILS % (AUTO) 0.6 % (0-1); EOSINOPHILS # (AUTO) 0.3 X10'3 (0-0.9); EOSINOPHILS % (AUTO) 3.6 % (0-6); HEMATOCRIT 33.9 % (42.0-52.0); HEMOGLOBIN 11.6 g/dl (14.0-17.9); LYMPHOCYTES # (AUTO) 1.2 X10'3 (1.1-4.8); LYMPHOCYTES % (AUTO) 12.6 % (21-51); MEAN CORPUSCULAR HEMOGLOBIN 30.6 PG (27.0-31.0); MEAN CORPUSCULAR HGB CONC 34.2 g/dL (33.0-36.5); MEAN CORPUSCULAR VOLUME 89.6 FL (78-98); MONOCYTES # (AUTO) 0.6 X10'3 (0-0.9); MONOCYTES % (AUTO) 6.8 % (2-12); NEUTROPHILS # (AUTO) 7.3 X10'3 (1.8-7.7); NEUTROPHILS % (AUTO) 76.4 % (42-75); PLATELET COUNT 287 X10'3 (140-440); RED BLOOD COUNT 3.78 X10'6 (4.70-6.10); RED CELL DISTRIBUTION WIDTH 14.4 % (11.5-14.5); WHITE BLOOD COUNT 9.5 X10'3 (4.5-11.0)
[2021-09-26 08:36] LABS: ALANINE AMINOTRANSFERASE 30 U/L (12-78); ALBUMIN 2.8 G/DL (3.4-5.0); ALBUMIN/GLOBULIN RATIO 0.6 (1.1-1.5); ALKALINE PHOSPHATASE 137 IU/L (46-116); ANION GAP 10 (8-16); ASPARTATE AMINO TRANSFERASE 35 U/L (10-37); BILIRUBIN,TOTAL 0.7 MG/DL (0.1-1.0); BLOOD UREA NITROGEN 9 MG/DL (7-18); BUN/CREATININE RATIO 10.2 (5.4-32.0); CALCIUM 8.7 MG/DL (8.5-10.1); CHLORIDE 96 MMOL/L (99-107); CREATININE 0.88 MG/DL (0.60-1.10); GLUCOSE 92 MG/DL (70-104); POTASSIUM 3.9 MMOL/L (3.5-5.1); SODIUM 129 MMOL/L (135-145); TOTAL CARBON DIOXIDE 22.8 MMOL/L (24-32); TOTAL PROTEIN 7.2 G/DL (6.4-8.2); eGFR 86 ML/MIN
[2021-09-26] MEDS: chlorthalidone 25mg tablet PO SCH (11:41)
[2021-09-26] MEDS: losartan 50mg tablet PO SCH (11:44)
[2021-09-26] MEDS: lactobacillus rhamnosus 10,000 MMU CELLS/CAPSULE PO SCH ×2 (11:47→20:10)
[2021-09-26] MEDS: atorvastatin 20mg tablet PO SCH (11:47)
[2021-09-26] MEDS: aspirin 81mg tab.chew PO SCH (11:47)
[2021-09-26] MEDS: sodium chloride 1gm tablet PO SCH ×2 (11:47→20:10)
[2021-09-26] MEDS: metoprolol tartrate 50mg tablet PO SCH ×2 (11:48→20:11)
[2021-09-26] MEDS: pantoprazole 40 MG vial IV SCH ×2 (11:48→20:12)
[2021-09-26] MEDS: heparin, porcine 5000 units/ml vial SQ SCH ×2 (11:49→20:12)
[2021-09-26] MEDS: fluticasone nasal spray 16GM bottle NS SCH (11:50)
[2021-09-26] MEDS: normal saline 1000ml 1,000 ML IV SCH ×2 (12:06→22:03)
--- NOTE | 2021-09-26 18:26 | NUR ---
Problems reprioritized. Patient report given, questions answered & plan of care reviewed with Yvenet.
[2021-09-27] MEDS: piperacillin/tazo 4.5gm/100ml 100 ML IV SCH ×2 (00:02→07:57)
[2021-09-27 02:00] VITALS: BP 121/69
[2021-09-27 06:00] VITALS: BP 137/69
[2021-09-27 07:04] LABS: BASOPHILS # (AUTO) 0.1 X10'3 (0-0.2); BASOPHILS % (AUTO) 0.9 % (0-1); EOSINOPHILS # (AUTO) 0.4 X10'3 (0-0.9); EOSINOPHILS % (AUTO) 5.4 % (0-6); HEMATOCRIT 34.7 % (42.0-52.0); HEMOGLOBIN 11.7 g/dl (14.0-17.9); LYMPHOCYTES # (AUTO) 1.6 X10'3 (1.1-4.8); LYMPHOCYTES % (AUTO) 21.3 % (21-51); MEAN CORPUSCULAR HEMOGLOBIN 30.4 PG (27.0-31.0); MEAN CORPUSCULAR HGB CONC 33.7 g/dL (33.0-36.5); MEAN CORPUSCULAR VOLUME 90.2 FL (78-98); MEAN PLATELET VOLUME 7.7 FL (7.4-10.4); MONOCYTES # (AUTO) 0.6 X10'3 (0-0.9); MONOCYTES % (AUTO) 8.4 % (2-12); NEUTROPHILS # (AUTO) 4.8 X10'3 (1.8-7.7); PLATELET COUNT 287 X10'3 (140-440); RED BLOOD COUNT 3.85 X10'6 (4.70-6.10); RED CELL DISTRIBUTION WIDTH 14.1 % (11.5-14.5); WHITE BLOOD COUNT 7.4 X10'3 (4.5-11.0)
[2021-09-27] MEDS: metoprolol tartrate 50mg tablet PO SCH (07:54)
[2021-09-27] MEDS: aspirin 81mg tab.chew PO SCH (07:55)
[2021-09-27] MEDS: sodium chloride 1gm tablet PO SCH (07:56)
[2021-09-27] MEDS: losartan 50mg tablet PO SCH (07:56)
[2021-09-27] MEDS: lactobacillus rhamnosus 10,000 MMU CELLS/CAPSULE PO SCH (07:56)
[2021-09-27] MEDS: atorvastatin 20mg tablet PO SCH (07:56)
[2021-09-27] MEDS: chlorthalidone 25mg tablet PO SCH (07:56)
[2021-09-27] MEDS: fluticasone nasal spray 16GM bottle NS SCH (07:57)
[2021-09-27] MEDS: heparin, porcine 5000 units/ml vial SQ SCH (07:57)
[2021-09-27] MEDS: pantoprazole 40 MG vial IV SCH (07:57)
[2021-09-27] MEDS: normal saline 1000ml 1,000 ML IV SCH (07:58)
[2021-09-27] MEDS: docusate sod 100mg capsule PO SCH (07:58)
--- NOTE | 2021-09-27 08:48 | NUR ---
DIARRHEA TODAY X3. SPEC SENT TO LAB. CALLED LAB TO INFORM THEM NOT TO DISCARD BASED ON APPEARANCE LIQUID ABSORBED INTO PAD AND RESIDUE WAS SCRAPED INTO SPEC CONTAINER THAT IS NOW MORE SOLID LOOKING.
[2021-09-27] MEDS ORDERED: LACT1CAP26 PO (09:25)
[2021-09-27] MEDS ORDERED: PANT40TA54 PO (09:25)
[2021-09-27] MEDS ORDERED: METR-159 PO (09:26)
[2021-09-27] MEDS ORDERED: CIPR-202 PO ×2 (09:26)
--- NOTE | 2021-09-27 10:15 | NUR ---
dSICUSSED pt na level, canceled bmp this am, continued diarrhea since yesterday and rejection of stool by lab d/t fluid being absorbed on chux. order for fecal management received and placed. pt ocoper as expected and without problems. f/c dc'd
[2021-09-27 10:49] LABS: ALANINE AMINOTRANSFERASE 31 U/L (12-78); ALBUMIN 2.5 G/DL (3.4-5.0); ALBUMIN/GLOBULIN RATIO 0.6 (1.1-1.5); ALKALINE PHOSPHATASE 121 IU/L (46-116); ANION GAP 9 (8-16); ASPARTATE AMINO TRANSFERASE 38 U/L (10-37); BILIRUBIN,TOTAL 0.5 MG/DL (0.1-1.0); BLOOD UREA NITROGEN 6 MG/DL (7-18); BUN/CREATININE RATIO 6.3 (5.4-32.0); CALCIUM 8.4 MG/DL (8.5-10.1); CHLORIDE 97 MMOL/L (99-107); CREATININE 0.95 MG/DL (0.60-1.10); GLUCOSE 122 MG/DL (70-104); POTASSIUM 3.6 MMOL/L (3.5-5.1); SODIUM 128 MMOL/L (135-145); TOTAL CARBON DIOXIDE 22.1 MMOL/L (24-32); TOTAL PROTEIN 6.6 G/DL (6.4-8.2); eGFR 79 ML/MIN
[2021-09-27 11:00] VITALS: BP 107/51
--- NOTE | 2021-09-27 12:27 | NUR ---
discussed with jamal Killian to run cdiff. Lab notified
[2021-09-27 13:03] LABS: C DIFF ANTIGEN SEE COMMENTS (NEGATIVE); C DIFF SPECIMEN=DIARRHEA? ACCEPTABLE; C DIFFICILE TOXINS A&B NEGATIVE (Neg)
[2021-09-27 15:00] VITALS: BP 134/81
--- NOTE | 2021-09-27 16:00 | NUR ---
Aprox this time pt disch to home. reviewed all medications and disch instructions with pt and his whom was at bedside. Pt cleaned before going home , iv removed and cannula intact. met dtv earlier, gave extra brief for at home if needed. transfered to /c [facility], all belongings accounted for including phone and shotweld operator which were in his pt bucket. skin becky rectal intact skin but tender from freq cleaning. barrier cream used t/o shift
[2021-09-28] MEDS ORDERED: VANC250C5 PO (16:42)
== END 2021-09-27 16:05 | disposition still patient (30) | DRG 377 ==
LOC: ER 17:26 → ED HOLD 09-24 04:22 → PCU 3S 09-24 21:05
PROVIDERS: ADMIT Family Medicine; ATTEND Internal Medicine
PROC: BW211ZZ Computerized Tomography (CT Scan) of Abdomen and Pelvis using Low Osmolar Contrast (ICD-10-PCS; principal; 2021-09-24)
PROC: 0DJ08ZZ Inspection of Upper Intestinal Tract, Via Natural or Artificial Opening Endoscopic (ICD-10-PCS; 2021-09-26)
DX: K29.51 Unspecified chronic gastritis with bleeding (principal); N17.0 Acute kidney failure with tubular necrosis; I50.32 Chronic diastolic (congestive) heart failure; E87.1 Hypo-osmolality and hyponatremia; N17.9 Acute kidney failure, unspecified; E87.2 Acidosis; K52.9 Noninfective gastroenteritis and colitis, unspecified; E78.5 Hyperlipidemia, unspecified; K21.00 Gastro-esophageal reflux disease with esophagitis, without bleeding; E78.00 Pure hypercholesterolemia, unspecified; I11.0 Hypertensive heart disease with heart failure; B96.89 Other specified bacterial agents as the cause of diseases classified elsewhere; K22.2 Esophageal obstruction; D50.0 Iron deficiency anemia secondary to blood loss (chronic); Z20.822 Contact with and (suspected) exposure to COVID-19; E86.1 Hypovolemia; I25.10 Atherosclerotic heart disease of native coronary artery without angina pectoris; K44.9 Diaphragmatic hernia without obstruction or gangrene; Z95.5 Presence of coronary angioplasty implant and graft; Z86.73 Personal history of transient ischemic attack (TIA), and cerebral infarction without residual deficits; I25.2 Old myocardial infarction; Z87.19 Personal history of other diseases of the digestive system; Z88.5 Allergy status to narcotic agent; Z88.8 Allergy status to other drugs, medicaments and biological substances; Z91.018 Allergy to other foods; Z79.899 Other long term (current) drug therapy; Z79.82 Long term (current) use of aspirin; Z79.02 Long term (current) use of antithrombotics/antiplatelets
CPT/HCPCS: 36415; 43235; 43239; 71045; 74177; 80053; 81003; 82272; 83605; 83735; 83880; 84100; 84145; 85025; 85610; 85730; 87040; 87045; 87046; 87081; 87324; 87449; 87635; 89055; 96360; 96361; 97116; 97161; 97530; 99152; 99285; A4620; C9113; C9803; G0378; J1644; J2250; J2543; J3010; J7030; J7040; Q9967

== ENCOUNTER 2021-12-02 08:12 | Day surgery (SDC) | payer MEDICARE, MEDICAID ==
[~2021-12-02] VITALS: Ht 172.7 cm; Wt 76.8 kg
[~2021-12-02 08:12] MED LIST changes: +ERGO500054 PO; +LACT1CAP26 PO; +LIDOcaine 1% 30ml preserv. free vial IJ STA; +SODI1TAB2 PO; +SPIR25TA5 PO
[2021-12-02] MEDS ORDERED: CHOL500044 PO (09:15)
[2021-12-02] MEDS ORDERED: HYDR-3965 PO (09:15)
[2021-12-02 09:17] VITALS: BP 127/64
[2021-12-02 10:45] VITALS: BP 123/91
[2021-12-02 11:00] VITALS: BP 128/72
[2021-12-02 11:05] VITALS: BP 124/69
[2021-12-02 11:49] VITALS: BP 123/91
== END 2021-12-02 11:15 | disposition home or self-care (01) ==
LOC: SSTAY O 08:12
PROVIDERS: ATTEND Preventive Medicine Aerospace Medicine
DX: R59.0 Localized enlarged lymph nodes (principal); R22.1 Localized swelling, mass and lump, neck
CPT/HCPCS: 38505; 76942; 88184; 88185

== ENCOUNTER 2021-12-10 13:35 | Inpatient (IN) | payer MEDICARE, MEDICAID ==
[~2021-12-10] VITALS: Ht 172.7 cm; Wt 72.7 kg
[~2021-12-10 13:35] MED LIST changes: +CHOL500044 PO; -ERGO500054 PO; -FLUT16SP2 BOTHNARES; +HYDR-3965 PO; -LIDOcaine 1% 30ml preserv. free vial IJ STA
[2021-12-10] MEDS ORDERED: metroNIDAZOLE-Flagyl 500mg/NS 100 ML IV STA (15:03)
[2021-12-10] MEDS ORDERED: acetaminophen 325mg tablet PO STA (15:03)
[2021-12-10] MEDS ORDERED: vancomycin 250MG/10ML UD oral solution 10ML BOTTLE PO SCH (15:05)
[2021-12-10] MEDS ORDERED: normal saline 1000ML IV soln IV ONE (15:05)
--- NOTE | 2021-12-10 15:08 | NUR ---
UNABLE TO GET IV ACESS,NOTIFIED ER CHARGE JULIAN .
[2021-12-10] MEDS ORDERED: ondansetron/PF 4mg/2ml inj IV ONE (15:15)
[2021-12-10] MEDS ORDERED: morphine 4 MG/ML inj SYRINge IV PRN (15:15)
[2021-12-10 15:29] LABS: BASOPHILS % (AUTO) 0.3 % (0-1); EOSINOPHILS # (AUTO) 0.1 X10'3 (0-0.9); EOSINOPHILS % (AUTO) 1.9 % (0-6); HEMATOCRIT 39.1 % (42.0-52.0); HEMOGLOBIN 13.5 g/dl (14.0-17.9); LYMPHOCYTES # (AUTO) 0.4 X10'3 (1.1-4.8); LYMPHOCYTES % (AUTO) 5.8 % (21-51); MEAN CORPUSCULAR HEMOGLOBIN 30.3 PG (27.0-31.0); MEAN CORPUSCULAR HGB CONC 34.4 g/dL (33.0-36.5); MEAN CORPUSCULAR VOLUME 88.1 FL (78-98); MEAN PLATELET VOLUME 7.4 FL (7.4-10.4); MONOCYTES # (AUTO) 0.6 X10'3 (0-0.9); MONOCYTES % (AUTO) 7.5 % (2-12); NEUTROPHILS # (AUTO) 6.2 X10'3 (1.8-7.7); NEUTROPHILS % (AUTO) 84.5 % (42-75); PLATELET COUNT 303 X10'3 (140-440); RED BLOOD COUNT 4.44 X10'6 (4.70-6.10); RED CELL DISTRIBUTION WIDTH 14.7 % (11.5-14.5); WHITE BLOOD COUNT 7.4 X10'3 (4.5-11.0)
[2021-12-10 15:40] LABS: ALANINE AMINOTRANSFERASE 34 U/L (12-78); ALBUMIN 3.3 G/DL (3.4-5.0); ALBUMIN/GLOBULIN RATIO 0.6 (1.1-1.5); ALKALINE PHOSPHATASE 162 IU/L (46-116); ANION GAP 11 (8-16); ASPARTATE AMINO TRANSFERASE 57 U/L (10-37); BILIRUBIN,TOTAL 1.4 MG/DL (0.1-1.0); BLOOD UREA NITROGEN 12 MG/DL (7-18); BUN/CREATININE RATIO 11.5 (5.4-32.0); CALCIUM 8.7 MG/DL (8.5-10.1); CHLORIDE 80 MMOL/L (99-107); CREATININE 1.04 MG/DL (0.60-1.10); GLUCOSE 121 MG/DL (70-104); LIPASE 63 U/L (73-393); TOTAL CARBON DIOXIDE 24.1 MMOL/L (24-32); TOTAL PROTEIN 8.6 G/DL (6.4-8.2); eGFR 71 ML/MIN
[2021-12-10 15:45] LABS: POTASSIUM 3.9 MMOL/L (3.5-5.1)
[2021-12-10 15:46] LABS: SODIUM 115 MMOL/L (135-145)
--- NOTE | 2021-12-10 16:46 | NUR ---
PT IV ACESS INFILTRATED AFTER PT CAME BACK FROM CT SCAN.BLAKE MITCHELL NOTIFIED TO START ULTRASOUND GUIDED IV.
--- NOTE | 2021-12-10 16:48 | NUR ---
NOTIFIED GERALDINE ALVARADO PT IV ACCESS INFILTRATED AND PT HAS NOT RECIVED MORE THAN 100 CC OF N.S.
[2021-12-10] MEDS: normal saline 1000ml 1,000 ML IV SCH ×2 (17:10→21:51)
[2021-12-10] MEDS ORDERED: ondansetron/PF 4mg/2ml inj IV PRN (17:10)
[2021-12-10] MEDS ORDERED: magnesium 4gm in 100ml NS 100 ML IV PRN (17:10)
[2021-12-10] MEDS ORDERED: acetaminophen 325mg tablet PO PRN ×3 (17:10→19:00)
[2021-12-10] MEDS ORDERED: magnesium 2GM in 50ml NS 50 ML IV PRN (17:10)
[2021-12-10] MEDS ORDERED: magnesium Cl slow-release 64mg tablet PO PRN (17:10)
[2021-12-10] MEDS ORDERED: potassium CL 10mEq/100ml bag 100 ML IV PRN (17:10)
[2021-12-10] MEDS ORDERED: potassium Cl 20 mEq SR tablet PO PRN (17:10)
[2021-12-10] MEDS ORDERED: CALC-157 PO (17:17)
[2021-12-10] MEDS ORDERED: GABA300C PO (17:17)
[2021-12-10] MEDS ORDERED: PANT-47 PO (17:17)
[2021-12-10] MEDS ORDERED: SODI1TAB2 PO (17:17)
[2021-12-10] MEDS ORDERED: ALEN70TA80 PO (17:17)
[2021-12-10] MEDS ORDERED: CHOL20002 PO (17:17)
[2021-12-10] MEDS ORDERED: vancomycin 125mg/5ml ORAL solution 5ml UD oral syringe PO SCH (17:33)
--- NOTE | 2021-12-10 18:37 | NUR ---
[facility]/49,HR 103,RR 24,SPO2 99% .ORDER TO CONTINUE THE IV FLUID BOLUS.
[2021-12-10] MEDS: K and/or MAG REPLACEMENT MC SCH (18:54)
[2021-12-10] MEDS ORDERED: LORazepam 2 mg/ml vial IV PRN (18:55)
[2021-12-10] MEDS ORDERED: LORazepam 1 MG tablet PO PRN (18:55)
[2021-12-10] MEDS: heparin, porcine 5000 units/ml vial SQ SCH (19:29)
[2021-12-10] MEDS: sodium chloride 1gm tablet PO SCH (20:44)
[2021-12-10] MEDS ORDERED: temazepam 15mg capsule PO PRN (21:00)
[2021-12-10] MEDS: gabapentin 300mg capsule PO SCH (21:52)
[2021-12-10 23:47] VITALS: BP 130/58
[2021-12-11] MEDS ORDERED: piperacillin/tazo 3.375gm/50ml 50 ML IV SCH
--- NOTE | 2021-12-11 06:51 | NUR ---
Patient in room ERWIN 340. I have received report from margie vazquez and had the opportunity to ask questions and assume patient care.
[2021-12-11 08:00] VITALS: BP_SYST 134; BP_SYST 162; BP_DIAS 69; BP_DIAS 84
[2021-12-11] MEDS: K and/or MAG REPLACEMENT MC SCH ×2 (08:00→20:00)
[2021-12-11 09:03] LABS: BASOPHILS % (AUTO) 0.5 % (0-1); EOSINOPHILS # (AUTO) 0.2 X10'3 (0-0.9); EOSINOPHILS % (AUTO) 3.6 % (0-6); HEMATOCRIT 36.5 % (42.0-52.0); HEMOGLOBIN 12.6 g/dl (14.0-17.9); LYMPHOCYTES # (AUTO) 0.2 X10'3 (1.1-4.8); LYMPHOCYTES % (AUTO) 3.8 % (21-51); MEAN CORPUSCULAR HEMOGLOBIN 30.4 PG (27.0-31.0); MEAN CORPUSCULAR HGB CONC 34.3 g/dL (33.0-36.5); MEAN CORPUSCULAR VOLUME 88.4 FL (78-98); MEAN PLATELET VOLUME 7.9 FL (7.4-10.4); MONOCYTES # (AUTO) 0.3 X10'3 (0-0.9); MONOCYTES % (AUTO) 4.7 % (2-12); NEUTROPHILS % (AUTO) 87.4 % (42-75); PLATELET COUNT 278 X10'3 (140-440); RED BLOOD COUNT 4.13 X10'6 (4.70-6.10); RED CELL DISTRIBUTION WIDTH 14.8 % (11.5-14.5); WHITE BLOOD COUNT 5.7 X10'3 (4.5-11.0)
[2021-12-11 09:46] LABS: ALBUMIN 2.6 G/DL (3.4-5.0); ALBUMIN/GLOBULIN RATIO 0.6 (1.1-1.5); ALKALINE PHOSPHATASE 116 IU/L (46-116); ANION GAP 11 (8-16); ASPARTATE AMINO TRANSFERASE 67 U/L (10-37); BLOOD UREA NITROGEN 14 MG/DL (7-18); BUN/CREATININE RATIO 12.1 (5.4-32.0); CALCIUM 6.9 MG/DL (8.5-10.1); CHLORIDE 86 MMOL/L (99-107); CREATININE 1.16 MG/DL (0.60-1.10); GLUCOSE 133 MG/DL (70-104); POTASSIUM 3.5 MMOL/L (3.5-5.1); TOTAL CARBON DIOXIDE 19.8 MMOL/L (24-32); TOTAL PROTEIN 7.2 G/DL (6.4-8.2); eGFR 62 ML/MIN
[2021-12-11 09:50] LABS: SODIUM 117 MMOL/L (135-145)
--- NOTE | 2021-12-11 09:56 | NUR ---
Page Sent PAGER ID: [phone] MESSAGE: Ton b Malinda, critical Na of 117
[2021-12-11 10:22] LABS: ALANINE AMINOTRANSFERASE 39 U/L (12-78)
[2021-12-11] MEDS: pantoprazole 40mg Tablet.DR PO SCH (10:44)
[2021-12-11] MEDS: aspirin 81mg tab.chew PO SCH (10:44)
[2021-12-11] MEDS: multivitamins, therapeutics tablet PO SCH (10:44)
[2021-12-11] MEDS: clopidogrel 75mg tablet PO SCH (10:44)
[2021-12-11] MEDS: sodium chloride 1gm tablet PO SCH ×2 (10:44→22:41)
[2021-12-11] MEDS: gabapentin 300mg capsule PO SCH ×3 (10:44→22:41)
[2021-12-11] MEDS: heparin, porcine 5000 units/ml vial SQ SCH ×2 (10:45→22:43)
[2021-12-11 11:00] VITALS: BP 146/69
--- NOTE | 2021-12-11 11:05 | NUR ---
Malnutrition screen: Pt admitted w/ new dx of throat cancer from 1 week ago per MD note. Pt states he has progressively losing wt since January 2021, reporting 20-30lb wt loss since then. Pt states this is due to not having an appetite and nausea. Bed scale wt from August 2021 shows 79kg and current bed scale wt shows 72kg, an 8% wt loss, though could be d/t fluctuation in bed scales. Bed scale wt from February 2021 shows 93kg though pt does not appear to have significant muscle or fat wasting when observed at bedside. No edema noted, currently pending PO. At this time pt does not meet minimum criteria for malnutrition. Pt did mention that he has trouble chewing and swallowing, d/w RN recommendation for BSS. Will continue to monitor. Addendum: 12/11/21 at [address] Amended: Links added.
[2021-12-11 11:16] LABS: CLARITY,URINE SLIGHTLY CLOUDY (Clear); COLOR,URINE YELLOW (Yellow); GLUCOSE, URINE NEGATIVE (Neg); KETONES,URINE NEGATIVE (Neg); LEUKOCYTE ESTERASE ,URINE NEGATIVE (Neg); NITRITES, URINE NEGATIVE (Neg); OCCULT BLOOD,URINE TRACE-INTACT (Neg); PH,URINE 6.5 (4.8-8.0); PROTEIN,URINE 30 mg/dl (Neg)
[2021-12-11 11:26] LABS: UA COLLECTION TYPE CONDOM CATH
[2021-12-11 12:13] LABS: BACTERIA,URINE NONE SEEN /HPF (Neg); CELLULAR CAST 0-4 /LPF (NEGATIVE); COARSE GRANULAR CAST 0-3 /LPF (NEGATIVE); HYALINE CASTS 0-3 /LPF (NEGATIVE); MUCUS STRANDS FEW /LPF (Neg); RBC,URINE 0-2 /HPF (0-2); SQUAMOUS EPITHELIAL CELL,UR NONE SEEN /LPF (FEW); TRANSITIONAL EPI CELLS,URINE FEW /HPF; WBC,URINE 0-4 /HPF (0-4)
--- NOTE | 2021-12-11 14:00 | NUR ---
attempted to call daughter Rosa and [facility] to get more information about pts condition since he is unsure about the specifics about his Cdiff diagnosis by an early childhood educator aide pt does not know doctor. i will let dr Mckinney know of my attempt to reach someone, but had no answer.
--- NOTE | 2021-12-11 14:32 | NUR ---
Page Sent PAGER ID: [phone] MESSAGE: 340 b Malinda, Blood cultures from yesterday were gram positive for cocci in clusters. ciro [id number]
--- NOTE | 2021-12-11 16:05 | NUR ---
PT TEMP HAS COME DOWN TO 98.1 SINCE GIVING TYLENOL
[2021-12-11] MEDS: vancomycin/NS 1 GM ADD-VANTAGE 250 ML IV SCH (16:09)
[2021-12-11] MEDS: furosemide 20 MG/2 ML vial IV SCH ×2 (16:09→20:00)
--- NOTE | 2021-12-11 16:59 | NUR ---
Page Sent PAGER ID: [phone] MESSAGE: Ton Petty attempted to reach [facility] today and daughter but was not successful.
[2021-12-11 18:00] VITALS: BP 104/55
--- NOTE | 2021-12-11 18:32 | NUR ---
Problems reprioritized. Patient report given, questions answered & plan of care reviewed with Arnol vazquez.
[2021-12-12] VITALS: BP 106/68
[2021-12-12] MEDS: vancomycin/NS 1 GM ADD-VANTAGE 250 ML IV SCH ×2 (03:00→14:57)
[2021-12-12] MEDS: heparin, porcine 5000 units/ml vial SQ SCH ×2 (07:34→19:15)
[2021-12-12] MEDS: pantoprazole 40mg Tablet.DR PO SCH (07:35)
[2021-12-12] MEDS: multivitamins, therapeutics tablet PO SCH (07:35)
[2021-12-12] MEDS: gabapentin 300mg capsule PO SCH ×3 (07:35→21:00)
[2021-12-12] MEDS: clopidogrel 75mg tablet PO SCH (07:35)
[2021-12-12] MEDS: sodium chloride 1gm tablet PO SCH ×2 (07:35→19:14)
[2021-12-12] MEDS: aspirin 81mg tab.chew PO SCH (07:36)
[2021-12-12 08:00] VITALS: BP 108/60
[2021-12-12] MEDS: K and/or MAG REPLACEMENT MC SCH ×2 (08:00→19:16)
--- NOTE | 2021-12-12 10:08 | NUR ---
Paged PICC RN to place a midline
[2021-12-12] MEDS: furosemide 20 MG/2 ML vial IV SCH (10:58)
[2021-12-12 11:00] VITALS: BP 126/67
[2021-12-12 11:19] LABS: BASOPHILS % (AUTO) 0.4 % (0-1); EOSINOPHILS # (AUTO) 0.2 X10'3 (0-0.9); HEMATOCRIT 33.3 % (42.0-52.0); HEMOGLOBIN 11.4 g/dl (14.0-17.9); LYMPHOCYTES # (AUTO) 0.2 X10'3 (1.1-4.8); LYMPHOCYTES % (AUTO) 3.5 % (21-51); MEAN CORPUSCULAR HEMOGLOBIN 30.4 PG (27.0-31.0); MEAN CORPUSCULAR HGB CONC 34.3 g/dL (33.0-36.5); MEAN CORPUSCULAR VOLUME 88.5 FL (78-98); MONOCYTES # (AUTO) 0.1 X10'3 (0-0.9); MONOCYTES % (AUTO) 2.7 % (2-12); NEUTROPHILS # (AUTO) 4.6 X10'3 (1.8-7.7); NEUTROPHILS % (AUTO) 89.4 % (42-75); PLATELET COUNT 209 X10'3 (140-440); RED BLOOD COUNT 3.76 X10'6 (4.70-6.10); RED CELL DISTRIBUTION WIDTH 15.1 % (11.5-14.5); WHITE BLOOD COUNT 5.2 X10'3 (4.5-11.0)
[2021-12-12 11:30] LABS: ALANINE AMINOTRANSFERASE 66 U/L (12-78); ALBUMIN 2.2 G/DL (3.4-5.0); ALBUMIN/GLOBULIN RATIO 0.6 (1.1-1.5); ALKALINE PHOSPHATASE 116 IU/L (46-116); ANION GAP 11 (8-16); ASPARTATE AMINO TRANSFERASE 111 U/L (10-37); BILIRUBIN,TOTAL 0.7 MG/DL (0.1-1.0); BLOOD UREA NITROGEN 18 MG/DL (7-18); BUN/CREATININE RATIO 14.8 (5.4-32.0); CALCIUM 6.9 MG/DL (8.5-10.1); CHLORIDE 87 MMOL/L (99-107); CREATININE 1.22 MG/DL (0.60-1.10); GLUCOSE 128 MG/DL (70-104); POTASSIUM 3.3 MMOL/L (3.5-5.1); eGFR 59 ML/MIN
[2021-12-12 11:35] LABS: SODIUM 119 MMOL/L (135-145)
[2021-12-12] MEDS: normal saline 1000ml 1,000 ML IV SCH (12:17)
[2021-12-12 14:17] LABS: PLATELET ESTIMATE NORMAL; TOTAL CELLS COUNTED 100
[2021-12-12] MEDS: potassium Cl 20 mEq SR tablet PO PRN ×3 (14:57→23:57)
--- NOTE | 2021-12-12 17:00 | NUR ---
pt repositioned by nursing staff/techs q2h throughout shift. pt states he still feels confused but its improving. Pt overall had poor nutrition this shift. Pt continues to require oxygen and feel md bala aware. Will continue to monitor pt.
[2021-12-12 18:00] VITALS: BP 128/66
[2021-12-12 23:22] LABS: ALBUMIN 2.2 G/DL (3.4-5.0); ANION GAP 8 (8-16); BLOOD UREA NITROGEN 18 MG/DL (7-18); BUN/CREATININE RATIO 15.4 (5.4-32.0); CHLORIDE 86 MMOL/L (99-107); CREATININE 1.17 MG/DL (0.60-1.10); GLUCOSE 111 MG/DL (70-104); POTASSIUM 3.9 MMOL/L (3.5-5.1); TOTAL CARBON DIOXIDE 22.6 MMOL/L (24-32); eGFR 62 ML/MIN
[2021-12-12 23:44] LABS: SODIUM 117 MMOL/L (135-145)
[2021-12-13] VITALS: BP 103/76
[2021-12-13] MEDS: normal saline 1000ml 1,000 ML IV SCH (01:00)
[2021-12-13] MEDS ORDERED: VANCOMYCIN LEVEL IV ONE (02:30)
[2021-12-13] MEDS: vancomycin/NS 1 GM ADD-VANTAGE 250 ML IV SCH (02:49)
[2021-12-13 02:55] LABS: ALANINE AMINOTRANSFERASE 66 U/L (12-78); ALBUMIN 2.2 G/DL (3.4-5.0); ALBUMIN/GLOBULIN RATIO 0.6 (1.1-1.5); ALKALINE PHOSPHATASE 134 IU/L (46-116); ANION GAP 9 (8-16); ASPARTATE AMINO TRANSFERASE 130 U/L (10-37); BILIRUBIN,TOTAL 0.7 MG/DL (0.1-1.0); BLOOD UREA NITROGEN 17 MG/DL (7-18); BUN/CREATININE RATIO 16.2 (5.4-32.0); CHLORIDE 87 MMOL/L (99-107); CREATININE 1.05 MG/DL (0.60-1.10); GLUCOSE 104 MG/DL (70-104); TOTAL PROTEIN 5.9 G/DL (6.4-8.2); VANCOMYCIN,TROUGH 13.7 UG/ML (6.0-14.0); eGFR 70 ML/MIN
[2021-12-13 03:14] LABS: SODIUM 117 MMOL/L (135-145)
[2021-12-13 06:30] VITALS: BP 140/71
--- NOTE | 2021-12-13 07:00 | NUR ---
Patient in room ERWIN 340. I have received report from STEPHEN Ambrose and had the opportunity to ask questions and assume patient care.
[2021-12-13] MEDS: K and/or MAG REPLACEMENT MC SCH ×2 (07:46→20:00)
[2021-12-13] MEDS: clopidogrel 75mg tablet PO SCH (09:45)
[2021-12-13] MEDS: furosemide 20 MG/2 ML vial IV SCH ×2 (09:45→20:31)
[2021-12-13] MEDS: sodium chloride 1gm tablet PO SCH ×2 (09:45→20:31)
[2021-12-13] MEDS: gabapentin 300mg capsule PO SCH ×3 (09:45→20:31)
[2021-12-13] MEDS: aspirin 81mg tab.chew PO SCH (09:45)
[2021-12-13] MEDS: pantoprazole 40mg Tablet.DR PO SCH (09:45)
[2021-12-13] MEDS: heparin, porcine 5000 units/ml vial SQ SCH ×2 (09:45→20:38)
[2021-12-13] MEDS: multivitamins, therapeutics tablet PO SCH (09:45)
[2021-12-13 11:00] VITALS: BP 117/63
[2021-12-13] MEDS: VANCOmycin 1250MG/NS 250ml Bag 250 ML IV SCH (14:33)
[2021-12-13 18:00] VITALS: BP 142/69
--- NOTE | 2021-12-13 18:20 | NUR ---
Problems reprioritized. Patient report given, questions answered & plan of care reviewed with Flor Ray RN.
--- NOTE | 2021-12-13 18:35 | NUR ---
Patient in room ERWIN 340. I have received report from HENRIK MITCHELL and had the opportunity to ask questions and assume patient care.
[2021-12-14] VITALS: BP 108/64
[2021-12-14] MEDS: VANCOmycin 1250MG/NS 250ml Bag 250 ML IV SCH (03:35)
--- NOTE | 2021-12-14 04:38 | NUR ---
Problems reprioritized. Patient report given, questions answered & plan of care reviewed with PRUDENCE RN.
--- NOTE | 2021-12-14 05:30 | NUR ---
Patient in room ERWIN 340. I have received report from BASILIA CUI RN and had the opportunity to ask questions and assume patient care.
--- NOTE | 2021-12-14 06:24 | NUR ---
Problems reprioritized. Patient report given, questions answered & plan of care reviewed with BERTIN MITCHELL.
[2021-12-14 06:30] LABS: BASOPHILS % (AUTO) 0.8 % (0-1); LYMPHOCYTES # (AUTO) 0.7 X10'3 (1.1-4.8); NEUTROPHILS # (AUTO) 2.6 X10'3 (1.8-7.7); RED BLOOD COUNT 3.42 X10'6 (4.70-6.10)
[2021-12-14 06:32] LABS: EOSINOPHILS # (AUTO) 0.3 X10'3 (0-0.9); EOSINOPHILS % (AUTO) 8.5 % (0-6); HEMOGLOBIN 10.5 g/dl (14.0-17.9); LYMPHOCYTES % (AUTO) 16.3 % (21-51); MEAN CORPUSCULAR HEMOGLOBIN 30.6 PG (27.0-31.0); MEAN CORPUSCULAR HGB CONC 34.9 g/dL (33.0-36.5); MEAN CORPUSCULAR VOLUME 87.8 FL (78-98); MONOCYTES # (AUTO) 0.3 X10'3 (0-0.9); MONOCYTES % (AUTO) 8.4 % (2-12); PLATELET COUNT 200 X10'3 (140-440); RED CELL DISTRIBUTION WIDTH 15.4 % (11.5-14.5)
[2021-12-14 06:35] LABS: ALANINE AMINOTRANSFERASE 110 U/L (12-78); ALBUMIN 2.1 G/DL (3.4-5.0); ALBUMIN/GLOBULIN RATIO 0.6 (1.1-1.5); ALKALINE PHOSPHATASE 154 IU/L (46-116); ANION GAP 8 (8-16); ASPARTATE AMINO TRANSFERASE 168 U/L (10-37); BILIRUBIN,TOTAL 0.6 MG/DL (0.1-1.0); BLOOD UREA NITROGEN 17 MG/DL (7-18); BUN/CREATININE RATIO 19.8 (5.4-32.0); CALCIUM 7.4 MG/DL (8.5-10.1); CHLORIDE 88 MMOL/L (99-107); CREATININE 0.86 MG/DL (0.60-1.10); GLUCOSE 109 MG/DL (70-104); POTASSIUM 3.5 MMOL/L (3.5-5.1); TOTAL CARBON DIOXIDE 21.8 MMOL/L (24-32); TOTAL PROTEIN 5.8 G/DL (6.4-8.2); eGFR 88 ML/MIN
[2021-12-14 06:40] LABS: SODIUM 118 MMOL/L (135-145)
[2021-12-14 07:01] LABS: ANISOCYTOSIS 1+; PLATELET ESTIMATE NORMAL; POIKILOCYTOSIS 1+
[2021-12-14 08:00] VITALS: BP 122/72
[2021-12-14] MEDS: K and/or MAG REPLACEMENT MC SCH ×3 (08:00→20:00)
[2021-12-14] MEDS: aspirin 81mg tab.chew PO SCH (08:01)
[2021-12-14] MEDS: gabapentin 300mg capsule PO SCH ×3 (08:02→21:59)
[2021-12-14] MEDS: clopidogrel 75mg tablet PO SCH (08:02)
[2021-12-14] MEDS: furosemide 20 MG/2 ML vial IV SCH (08:02)
[2021-12-14] MEDS: sodium chloride 1gm tablet PO SCH ×2 (08:02→20:40)
[2021-12-14] MEDS: pantoprazole 40mg Tablet.DR PO SCH (08:02)
[2021-12-14] MEDS: multivitamins, therapeutics tablet PO SCH (08:02)
[2021-12-14] MEDS: heparin, porcine 5000 units/ml vial SQ SCH ×2 (08:03→20:40)
[2021-12-14 11:04] VITALS: BP 103/55
[2021-12-14] MEDS ORDERED: LORazepam 2 mg/ml vial IV PRN (12:40)
[2021-12-14] MEDS: sodium chloride 3% IV.soln 100 ML IV SCH ×4 (14:45→23:33)
[2021-12-14] MEDS ORDERED: LIDOcaine 2% 10ml TOPICAL JELLY (Urojet) TP ONE (17:05)
--- NOTE | 2021-12-14 18:37 | NUR ---
Patient in room ERWIN 340. I have received report from STEPHEN Day and had the opportunity to ask questions and assume patient care.
--- NOTE | 2021-12-14 19:04 | NUR ---
PT REPOSITIONED Q2H BY NURSING STAFF/TECHS THROUGHOUT SHIFT. UNABLE TO INSERT BELTRAN CATHETER. PT STRAIGHT CATHED AT 1800 WITH 800ML URINE OUT. MGMT CONSULTANT NOTIFIED OF NEED FOR COUDE CATHETER COMPATIBLE WITH BELTRAN BAG.
[2021-12-14 19:46] LABS: ALBUMIN 2.3 G/DL (3.4-5.0); ANION GAP 6 (8-16); BLOOD UREA NITROGEN 18 MG/DL (7-18); BUN/CREATININE RATIO 18.9 (5.4-32.0); CALCIUM 7.8 MG/DL (8.5-10.1); CHLORIDE 90 MMOL/L (99-107); CREATININE 0.95 MG/DL (0.60-1.10); GLUCOSE 123 MG/DL (70-104); SODIUM 121 MMOL/L (135-145); TOTAL CARBON DIOXIDE 25.5 MMOL/L (24-32); eGFR 79 ML/MIN
[2021-12-14 19:53] LABS: POTASSIUM 2.9 MMOL/L (3.5-5.1)
[2021-12-14] MEDS ORDERED: potassium Cl 20 mEq SR tablet PO PRN (20:00)
[2021-12-14] MEDS ORDERED: magnesium 2GM in 50ml NS 50 ML IV PRN (20:00)
[2021-12-14] MEDS ORDERED: magnesium Cl slow-release 64mg tablet PO PRN (20:00)
[2021-12-14] MEDS ORDERED: potassium CL 10mEq/100ml bag 100 ML IV PRN (20:00)
[2021-12-14] MEDS ORDERED: magnesium 4gm in 100ml NS 100 ML IV PRN (20:00)
[2021-12-14] MEDS: potassium Cl 20 mEq SR tablet PO PRN (20:40)
[2021-12-14 21:00] VITALS: BP 157/77
[2021-12-14 22:00] VITALS: BP 135/80
[2021-12-14] MEDS: albuterol 2.5 MG/3 ML nebule NEB PRN (22:07)
[2021-12-14] MEDS ORDERED: guaiFENesin 200 MG/10 ML oral syrup UD cup PO PRN (22:50)
[2021-12-14] MEDS ORDERED: albuterol 2.5 MG/3 ML nebule NEB ONE (23:00)
[2021-12-14] MEDS ORDERED: CefTRIAXone/D5W-Rocephin 1gm 50 ML IV ONE (23:00)
[2021-12-14 23:52] LABS: ABG HCO3 24.7 mmol/L (22.0-26.0); ABG PCO2 (T) 36.2 mmHg (35.0-48.0); ABG PO2 (T) 90.3 mmHg (75.0-100.0); ALLEN'S TEST POSITIVE; FCOHb 0.3 % (0.0-3.9); FLOW 4 L/min; FMetHb 0.4 % (0.0-1.5); FO2Hb 96.3 % (94-97); TOTAL HEMOGLOBIN 12.1 G/dl (14.0-18.0)
[2021-12-15] VITALS: BP 157/61
--- NOTE | 2021-12-15 00:09 | NUR ---
Pharmacy called and told me to hold sodium Chloride 3% until next lab draw.
[2021-12-15] MEDS: potassium Cl 20 mEq SR tablet PO PRN ×2 (01:01→05:05)
[2021-12-15] MEDS ORDERED: LIDOcaine 2% 10ml TOPICAL JELLY (Urojet) MM ONE (01:10)
--- NOTE | 2021-12-15 01:30 | NUR ---
Sodium restarted per pharmacy. Sodium re draw was 121
[2021-12-15] MEDS ORDERED: VANCOMYCIN LEVEL IV ONE (02:30)
[2021-12-15] MEDS: sodium chloride 3% IV.soln 100 ML IV SCH ×7 (05:02→21:55)
--- NOTE | 2021-12-15 06:39 | NUR ---
Problems reprioritized. Patient report given, questions answered & plan of care reviewed with STEPHEN Butcher.
--- NOTE | 2021-12-15 07:05 | NUR ---
Patient in room ERWIN 340. I have received report from JAVIER MITCHELL and had the opportunity to ask questions and assume patient care.
[2021-12-15 07:25] VITALS: BP 131/65
[2021-12-15] MEDS: CefTRIAXone/D5W-Rocephin 1gm 50 ML IV SCH (08:00)
[2021-12-15] MEDS: K and/or MAG REPLACEMENT MC SCH ×4 (08:00→20:00)
[2021-12-15] MEDS: sodium chloride 1gm tablet PO SCH ×2 (10:02→20:03)
[2021-12-15] MEDS: aspirin 81mg tab.chew PO SCH (10:02)
[2021-12-15] MEDS: thiamine 100mg tablet PO SCH (10:02)
[2021-12-15] MEDS: pantoprazole 40mg Tablet.DR PO SCH (10:03)
[2021-12-15] MEDS: lactobacillus rhamnosus 10,000 MMU CELLS/CAPSULE PO SCH (10:03)
[2021-12-15] MEDS: clopidogrel 75mg tablet PO SCH (10:03)
[2021-12-15] MEDS: folic acid 1mg tablet PO SCH (10:03)
[2021-12-15] MEDS: multivitamins, therapeutics tablet PO SCH (10:04)
[2021-12-15] MEDS: gabapentin 300mg capsule PO SCH ×3 (10:04→20:03)
[2021-12-15] MEDS: heparin, porcine 5000 units/ml vial SQ SCH ×2 (10:06→20:04)
[2021-12-15 11:24] VITALS: BP 137/67
--- NOTE | 2021-12-15 11:53 | NUR ---
Initial: Pt admitted w/ new dx of throat cancer from 1 week ago, encephalopathy, sepsis, and hyponatremia per EMR. Pt remains weak per MD note. Currently on MM5 diet per LARRIMAN HELPER recs w/ poor PO intake, avg 34% x 11 meals which meets approximately 43% of est energy needs and 31% of est protein needs. Pt can benefit from Ensure Enlive TID to help meet nutrient needs. LB 12/12. Will continue to monitor and make recommendations as appropriate. Recs: 1. Continue MM5 diet as tolerated per LARRIMAN HELPER recs 2. Ensure Enlive TID; pending MD verification 3. Bowel care per rx 4. Weekly wts Addendum: 12/15/21 at [address] Amended: Links added.
[2021-12-15 12:24] LABS: BASOPHILS % (AUTO) 0.8 % (0-1); EOSINOPHILS # (AUTO) 0.4 X10'3 (0-0.9); EOSINOPHILS % (AUTO) 6.9 % (0-6); HEMATOCRIT 30.8 % (42.0-52.0); HEMOGLOBIN 10.5 g/dl (14.0-17.9); LYMPHOCYTES # (AUTO) 0.7 X10'3 (1.1-4.8); LYMPHOCYTES % (AUTO) 11.4 % (21-51); MEAN CORPUSCULAR HEMOGLOBIN 30.1 PG (27.0-31.0); MEAN CORPUSCULAR HGB CONC 34.1 g/dL (33.0-36.5); MEAN CORPUSCULAR VOLUME 88.3 FL (78-98); MEAN PLATELET VOLUME 8.5 FL (7.4-10.4); MONOCYTES # (AUTO) 0.6 X10'3 (0-0.9); MONOCYTES % (AUTO) 9.4 % (2-12); NEUTROPHILS # (AUTO) 4.2 X10'3 (1.8-7.7); NEUTROPHILS % (AUTO) 71.5 % (42-75); PLATELET COUNT 227 X10'3 (140-440); RED BLOOD COUNT 3.49 X10'6 (4.70-6.10); RED CELL DISTRIBUTION WIDTH 15.2 % (11.5-14.5); WHITE BLOOD COUNT 5.8 X10'3 (4.5-11.0)
[2021-12-15 12:53] LABS: ALANINE AMINOTRANSFERASE 114 U/L (12-78); ALBUMIN 2.3 G/DL (3.4-5.0); ALBUMIN/GLOBULIN RATIO 0.6 (1.1-1.5); ALKALINE PHOSPHATASE 181 IU/L (46-116); ANION GAP 3 (8-16); ASPARTATE AMINO TRANSFERASE 113 U/L (10-37); BILIRUBIN,TOTAL 0.4 MG/DL (0.1-1.0); BLOOD UREA NITROGEN 14 MG/DL (7-18); BUN/CREATININE RATIO 16.5 (5.4-32.0); CALCIUM 7.9 MG/DL (8.5-10.1); CHLORIDE 93 MMOL/L (99-107); CREATININE 0.85 MG/DL (0.60-1.10); GLUCOSE 136 MG/DL (70-104); MAGNESIUM 1.9 MG/DL (1.5-2.4); POTASSIUM 4.6 MMOL/L (3.5-5.1); SODIUM 121 MMOL/L (135-145); TOTAL CARBON DIOXIDE 24.7 MMOL/L (24-32); TOTAL PROTEIN 6.1 G/DL (6.4-8.2); VANCOMYCIN,TROUGH 14.3 UG/ML (6.0-14.0); eGFR 89 ML/MIN
--- NOTE | 2021-12-15 15:33 | NUR ---
HAVE BEEN UNSUCCESSFUL ALL DAY IN TRYING TO ESTABLISH IV ACCESS. MULTIPLE ATTEMPTS FOR IV STARTS FAILED AND UNABLE TO GIVE SODIUM IV AND ANTIBIOTICS MD NOTIFIED OF ISSUES. WILL ATTEMPT TO ESTABLISH ACCESS TONIGHT AND TOMORROW.
--- NOTE | 2021-12-15 15:36 | NUR ---
Paged Dr. Mckinney Surgical Sofhia RN ext [phone]. RE: Robby Petty. Patient midline not working. Na still low 121. He has been poked 4 different nurses without success. Rocephin IV was not given. Do you want us to increase Na pill dose?
--- NOTE | 2021-12-15 15:38 | NUR ---
AWARE OF NO IV ACCESS AT THIS TIME.
[2021-12-15 18:01] LABS: OSMOLALITY UA 449 MOSM/K (50-1400)
[2021-12-15 18:06] LABS: SODIUM,URINE RANDOM 58 MEQ/L
--- NOTE | 2021-12-15 18:40 | NUR ---
Patient in room ERWIN 340. I have received report from Hadley MITCHELL and had the opportunity to ask questions and assume patient care.
--- NOTE | 2021-12-15 18:43 | NUR ---
Problems reprioritized. Patient report given, questions answered & plan of care reviewed with ABRIL MITCHELL.
[2021-12-15 19:00] VITALS: BP 119/75
--- NOTE | 2021-12-15 20:20 | NUR ---
Lab in trying to draw blood for a Bmp. Lab was unable.
[2021-12-15] MEDS: albuterol 2.5 MG/3 ML nebule NEB PRN (20:36)
[2021-12-16] VITALS: BP 107/68
[2021-12-16] MEDS: sodium chloride 3% IV.soln 100 ML IV SCH ×3 (01:20→08:00)
--- NOTE | 2021-12-16 02:26 | NUR ---
core extruder managed to get the midline to flush by pulling back a little on the hub. However, unable to draw any blood out at this time. Priamry bag of 3% NACL not infused this shift due to being unable to obtain current sodium lab.
--- NOTE | 2021-12-16 06:42 | NUR ---
Problems reprioritized. Patient report given, questions answered & plan of care reviewed with Jennie MITCHELL.
[2021-12-16 07:00] VITALS: BP 100/57
[2021-12-16] MEDS: K and/or MAG REPLACEMENT MC SCH ×2 (08:00)
[2021-12-16] MEDS: CefTRIAXone/D5W-Rocephin 1gm 50 ML IV SCH (08:00)
--- NOTE | 2021-12-16 10:20 | NUR ---
HAVING DIFFICULT TIME GETTING IV ACCESS FOR LAB DRAWS AND IV INFUSIONS, TALKED TO DR ABOUT PLACING PICC LINE BECAUSE IT MAY MORE DURABLE, PAGED PICC, PICC DISCOURAGE AGAINST PICC PLACEMENT AND SUGGESTED A DIFFERENT MIDLINE/CENTRAL LINE TO BE PLACED. PAGED DR TO CALL PICC NURSE TO DISCUSS OPTIONS. PICC NURSE ALSO STATED PICC SERVICES WAS NOT AVAILABLE TODAY DUE TO STAFFING ISSUES
[2021-12-16 11:00] VITALS: BP 116/56
[2021-12-16] MEDS: folic acid 1mg tablet PO SCH (11:01)
[2021-12-16] MEDS: heparin, porcine 5000 units/ml vial SQ SCH (11:01)
[2021-12-16] MEDS: clopidogrel 75mg tablet PO SCH (11:01)
[2021-12-16] MEDS: gabapentin 300mg capsule PO SCH ×2 (11:02→16:10)
[2021-12-16] MEDS: aspirin 81mg tab.chew PO SCH (11:02)
[2021-12-16] MEDS: thiamine 100mg tablet PO SCH (11:02)
[2021-12-16] MEDS: lactobacillus rhamnosus 10,000 MMU CELLS/CAPSULE PO SCH (11:02)
[2021-12-16] MEDS: multivitamins, therapeutics tablet PO SCH (11:02)
[2021-12-16] MEDS: pantoprazole 40mg Tablet.DR PO SCH (11:03)
[2021-12-16] MEDS: sodium chloride 1gm tablet PO SCH (11:03)
[2021-12-16 12:23] LABS: ALBUMIN 2.3 G/DL (3.4-5.0); ANION GAP 5 (8-16); BLOOD UREA NITROGEN 10 MG/DL (7-18); BUN/CREATININE RATIO 13.5 (5.4-32.0); CALCIUM 8.2 MG/DL (8.5-10.1); CHLORIDE 93 MMOL/L (99-107); CREATININE 0.74 MG/DL (0.60-1.10); GLUCOSE 101 MG/DL (70-104); MAGNESIUM 1.8 MG/DL (1.5-2.4); POTASSIUM 4.5 MMOL/L (3.5-5.1); SODIUM 125 MMOL/L (135-145); TOTAL CARBON DIOXIDE 27.3 MMOL/L (24-32); eGFR > 90 ML/MIN
[2021-12-16] MEDS ORDERED: TOLVAPTAN 30 MG TABLET PO SCH (16:45)
--- NOTE | 2021-12-16 16:50 | NUR ---
PATIENT STABLE AND APPROPRIATE FOR TRANSFER, PATIENT TRANSFERRED TO [facility] BY AMBULANCE AND THEIR STAFF, ALL BELONGINGS SENT WITH PATIENT, REPORT CALLED IN TO STEPHEN COOMBS FROM [facility]
== END 2021-12-16 16:50 | DRG 643 ==
LOC: ER 13:36 → ED HOLD 17:17 → SUR 3N 20:50
PROVIDERS: ADMIT Internal Medicine; ATTEND Internal Medicine
PROC: 05HY33Z Insertion of Infusion Device into Upper Vein, Percutaneous Approach (ICD-10-PCS; principal; 2021-12-11)
DX: E22.2 Syndrome of inappropriate secretion of antidiuretic hormone (principal); G93.41 Metabolic encephalopathy; E43 Unspecified severe protein-calorie malnutrition; I10 Essential (primary) hypertension; E86.0 Dehydration; E78.00 Pure hypercholesterolemia, unspecified; C14.0 Malignant neoplasm of pharynx, unspecified; K57.90 Diverticulosis of intestine, part unspecified, without perforation or abscess without bleeding; F12.90 Cannabis use, unspecified, uncomplicated; Z96.649 Presence of unspecified artificial hip joint; M54.50 Low back pain, unspecified; Z20.822 Contact with and (suspected) exposure to COVID-19; M25.552 Pain in left hip; M54.9 Dorsalgia, unspecified; R74.8 Abnormal levels of other serum enzymes; T50.2X5A Adverse effect of carbonic-anhydrase inhibitors, benzothiadiazides and other diuretics, initial encounter; F41.9 Anxiety disorder, unspecified; G89.29 Other chronic pain; I25.2 Old myocardial infarction; Z95.5 Presence of coronary angioplasty implant and graft; Z79.02 Long term (current) use of antithrombotics/antiplatelets; Z86.73 Personal history of transient ischemic attack (TIA), and cerebral infarction without residual deficits; Z88.8 Allergy status to other drugs, medicaments and biological substances; Z88.5 Allergy status to narcotic agent; Z91.018 Allergy to other foods; Z87.891 Personal history of nicotine dependence; Z72.89 Other problems related to lifestyle; Z79.899 Other long term (current) drug therapy; Z79.82 Long term (current) use of aspirin; Z68.24 Body mass index [BMI] 24.0-24.9, adult; Y92.89 Other specified places as the place of occurrence of the external cause
CPT/HCPCS: 36000; 36410; 36415; 36569; 36600; 70450; 71045; 74176; 76937; 80048; 80053; 80202; 81001; 82803; 83605; 83690; 83735; 83880; 83930; 83935; 84145; 84295; 84300; 84550; 85007; 85008; 85018; 85025; 87040; 87077; 87081; 87186; 87635; 92508; 92616; 93005; 93306; 94640; 94667; 94760; 96361; 96365; 96375; 97110; 97116; 97161; 97530; 99285; C1751; C9803; G0378; J0696; J1644; J1940; J2060; J2270; J2405; J2543; J3370; J3490; J7030; J7131

== ENCOUNTER 2022-07-03 10:45 | Day surgery (SDC) | payer MEDICARE, MEDICAID ==
[~2022-07-03] VITALS: Ht 167.6 cm; Wt 73.5 kg
[2022-07-03] VITALS (8 sets, daily range): BP systolic 101–124; BP diastolic 52–80
[~2022-07-03 10:45] MED LIST changes: +ALEN70TA80 PO; +CALC-157 PO; +CHOL20002 PO; -CHOL500044 PO; +GABA300C PO; -HYDR-3965 PO; -LACT1CAP26 PO; -LOSA100T57 PO; -METO50TA16 PO; +PANT-47 PO; -PANT40TA54 PO
[2022-07-03] MEDS ORDERED: FLUT16SP26 BOTHNARES (11:34)
[2022-07-03] MEDS ORDERED: LACT1CAP86 PO (11:34)
[2022-07-03] MEDS ORDERED: GUAI600T45 PO (11:34)
[2022-07-03] MEDS ORDERED: PRAV80TA3 PO (11:34)
[2022-07-03] MEDS ORDERED: THIA50TA10 PO (11:34)
[2022-07-03] MEDS ORDERED: FOLI1TAB27 PO (11:34)
[2022-07-03] MEDS ORDERED: LORA10TA7 PO (11:34)
[2022-07-03] MEDS ORDERED: MOME13HF INH (11:34)
[2022-07-03 12:11] LABS: BASOPHILS % (AUTO) 0.3 % (0-1); EOSINOPHILS % (AUTO) 0.4 % (0-6); HEMATOCRIT 27.4 % (42.0-52.0); HEMOGLOBIN 9.4 g/dl (14.0-17.9); LYMPHOCYTES # (AUTO) 0.8 X10'3 (1.1-4.8); LYMPHOCYTES % (AUTO) 14.3 % (21-51); MEAN CORPUSCULAR HEMOGLOBIN 27.4 PG (27.0-31.0); MEAN CORPUSCULAR HGB CONC 34.2 g/dL (33.0-36.5); MEAN CORPUSCULAR VOLUME 80.1 FL (78-98); MEAN PLATELET VOLUME 7.7 FL (7.4-10.4); MONOCYTES # (AUTO) 0.5 X10'3 (0-0.9); MONOCYTES % (AUTO) 8.6 % (2-12); NEUTROPHILS # (AUTO) 4.4 X10'3 (1.8-7.7); NEUTROPHILS % (AUTO) 76.4 % (42-75); PLATELET COUNT 85 X10'3 (140-440); RED BLOOD COUNT 3.42 X10'6 (4.70-6.10); RED CELL DISTRIBUTION WIDTH 17.8 % (11.5-14.5); WHITE BLOOD COUNT 5.8 X10'3 (4.5-11.0)
[2022-07-03 12:20] LABS: APTT 26 SECONDS (22-32)
[2022-07-03] MEDS ORDERED: heparin sodium, porcine/PF 100unit/ml 5ML syringe ONE (13:51)
[2022-07-03] MEDS ORDERED: fentaNYL/PF 50MCG/1 ML 2ML syringe ONE (13:51)
[2022-07-03] MEDS ORDERED: LIDOcaine 1%/PF 5ML 10 MG/ML VIAL ONE (13:51)
[2022-07-03] MEDS ORDERED: midazolam 1 mg/ML 2ml injection ONE (13:51)
== END 2022-07-03 17:30 | disposition home or self-care (01) ==
LOC: SSTAY O 10:45
PROVIDERS: ATTEND Radiology Vascular & Interventional Radiology
DX: C14.0 Malignant neoplasm of pharynx, unspecified (principal); C78.00 Secondary malignant neoplasm of unspecified lung; Z88.8 Allergy status to other drugs, medicaments and biological substances; Z88.6 Allergy status to analgesic agent; Z79.899 Other long term (current) drug therapy; Z98.890 Other specified postprocedural states; Z87.891 Personal history of nicotine dependence; Z79.01 Long term (current) use of anticoagulants; Z91.018 Allergy to other foods
CPT/HCPCS: 36415; 36561; 76937; 77001; 85025; 85610; 85730; 99152; 99153; C1769; C1788; C1894; J1642; J2250; J3010; J3490; J7030; A4620

== ENCOUNTER 2022-10-10 10:54 | Outpatient (CLI) | payer OTHER ==
[~2022-10-10 10:54] MED LIST changes: -ALEN70TA80 PO; -ATOR20TA66 PO; -CHLO25TA10 PO; +FLUT16SP26 BOTHNARES; +FOLI1TAB27 PO; +GUAI600T45 PO; +LACT1CAP86 PO; +LORA10TA7 PO; +MOME13HF11 INH; +PRAV80TA3 PO; -SODI1TAB2 PO; -SPIR25TA5 PO; +THIA50TA10 PO; +iohexol 300mg/ml 100ml inj. ONE
== END 2022-10-10 23:59 | disposition home or self-care (01) ==
LOC: RAD 10:54
PROVIDERS: ATTEND Internal Medicine
DX: K44.9 Diaphragmatic hernia without obstruction or gangrene (principal); K52.9 Noninfective gastroenteritis and colitis, unspecified; K56.7 Ileus, unspecified; K22.89 Other specified disease of esophagus; K86.89 Other specified diseases of pancreas; K22.4 Dyskinesia of esophagus
CPT/HCPCS: 74176; 74177; J3490; Q9967